=== PATIENT | male | born 1945 | race Two or more races ===

== ENCOUNTER 2020-09-18 10:50 | Outpatient (REF) | payer MEDICARE, SELFPAY ==
--- NOTE | 2020-09-18 10:58 | XR_ITS ---
EXAMINATION: XR SHOULDER, RIGHT CLINICAL INFORMATION: Shoulder pain COMPARISON: None TECHNIQUE: AP external rotation, Grashey, scapular Y, and axillary views of the right shoulder. FINDINGS: No fracture. Glenohumeral alignment is anatomic with normal joint space. Mild AC joint arthritis. No abnormal soft tissue calcifications. Visualized right lung is clear. XR/XR shoulder RT min 2V IMPRESSION: Mild AC joint arthritis.
== END 2020-09-18 10:51 | disposition home or self-care (01) ==
LOC: HO.XRAY 10:50
PROVIDERS: PCP Internal Medicine; Visit Provider Nurse Practitioner Family
DX: M25.511 Pain in right shoulder (principal)
CPT/HCPCS: 73030

== ENCOUNTER → 2020-10-14 13:28 | Outpatient (BNVA) | payer MEDICARE, SELFPAY | PROVIDERS: PCP Internal Medicine; Referring Provider Internal Medicine; Visit Provider Orthopaedic Surgery | DX: M75.41 Impingement syndrome of right shoulder (principal) | CPT/HCPCS: 20610; 99202; J1040 ==

== ENCOUNTER 2021-04-07 07:18 | Outpatient (REF) | payer MEDICARE, SELFPAY ==
[2021-04-07 08:43] LABS: MANUAL DIFF FLAG NO
[2021-04-07 08:49] LABS: Basophils Absolute Auto 0.1 X10*3/uL (0.0-0.2); Eosinophils Absolute Auto 0.4 X10*3/uL (0.0-0.4); Hematocrit 41.5 % (42-52); Hemoglobin 13.5 g/dl (14.0-18.0); Lymphocytes Percent Auto 39.1 % (20-40); Mean Corpuscular HGB Conc 32.5 g/dl (31.0-36.0); Mean Corpuscular Hemoglobin 29.5 pg (27.0-33.0); Mean Corpuscular Volume 90.6 fL (80-98); Mean Platelet Volume 10.7 fL (9.4-12.4); Monocytes Absolute Auto 0.5 X10*3/uL (0.1-1.2); Monocytes Percent Auto 9.8 % (2-11); Neutrophils Absolute Auto 2.1 X10*3/uL (2.0-8.3); Neutrophils Percent Auto 41.1 % (45-73); Platelet Count 211 X10*3/uL (160-400); Red Blood Count 4.58 X10*6/uL (4.60-5.80); Red Cell Distribution Width 13.1 % (11.0-16.0)
[2021-04-07 09:06] LABS: Alanine Aminotransferase 30 U/L (0-40); Albumin Level 4.1 g/dL (3.5-5.0); Alkaline Phosphatase 88 U/L (39-117); Anion Gap 11 (12-20); Aspartate Amino Transferase 26 U/L (5-37); Bilirubin Total 0.6 mg/dL (0.0-1.0); Blood Urea Nitrogen 22 mg/dL (9-16); Calcium 8.8 mg/dL (8.4-10.2); Carbon Dioxide 29 mmol/L (22-29); Chloride 106 mmol/L (96-108); Cholesterol 142 mg/dL; Estimated Glomerular Filt Rate > 60; Glucose Random 99 mg/dL (60-115); HDL Cholesterol 44 mg/dL; LDL Cholesterol Calculated 83 mg/dl; Potassium 3.8 mmol/L (3.3-5.1); Sodium 142 mmol/L (135-145); Total Protein 6.4 g/dL (6.5-8.0); Triglycerides 75 mg/dL
[2021-04-07 09:31] LABS: Thyroid Stimulating Hormone 1.75 uIU/mL (0.32-4.0)
[2021-04-07 09:35] LABS: Folate 14.9 ng/mL (> or = 4.0); Vitamin B12 655 pg/mL (200-900)
== END 2021-04-07 07:19 | disposition home or self-care (01) ==
LOC: HO.LAB 07:18
PROVIDERS: PCP Internal Medicine; Visit Provider Internal Medicine
DX: I10 Essential (primary) hypertension (principal); I25.10 Atherosclerotic heart disease of native coronary artery without angina pectoris; E78.00 Pure hypercholesterolemia, unspecified
CPT/HCPCS: 36415; 80053; 80061; 82607; 82746; 84439; 84443; 85025

== ENCOUNTER 2021-04-17 17:31 | Emergency (ER) | payer MEDICARE, SELFPAY ==
[2021-04-17 17:55] VITALS: BP 213/93; PULSE 62; RESP 18; TEMP 36.8; O2SAT 98; BMI 24.5
--- NOTE | 2021-04-17 18:38 | ED.GENADULT ---
HPI - General Adult General Chief complaint: General Medical Stated complaint: high bp Time Seen by Provider: 04/17/21 18:38 Source: patient Mode of arrival: ambulatory Limitations: no limitations History of Present Illness HPI narrative: Patient history of hypertension on metoprolol and hydrochlorothiazide checked his blood pressure was elevated in 200 range on arrival it was 213/93 patient denied any headache no nausea no vomiting no shortness of breath no chest pain seen here on 04/07 with normal kidney functions Related Data Home Medications Medication Instructions Recorded Confirmed aspirin 81 mg tablet,delayed 81 mg PO DAILY 09/18/20 04/08/21 release Previous Rx's Medication Instructions Recorded atorvastatin 40 mg tablet 40 mg PO DAILY #90 tab 04/08/21 clotrimazole 1 % topical cream 1 appl TOPICAL BID 28 Days #45 g 04/08/21 ezetimibe 10 mg tablet 10 mg PO DAILY #90 tab 04/08/21 hydrochlorothiazide 25 mg tablet 25 mg PO QAM #90 tab 04/08/21 metoprolol succinate 50 mg 50 mg PO DAILY 90 Days #90 tab 04/08/21 tablet,extended release 24 hr tadalafil 20 mg tablet 20 mg PO DIRECTED #15 cap 04/08/21 losartan [Cozaar] 50 mg PO DAILY #30 tab 04/17/21 Allergies Allergy/AdvReac Type Severity Reaction Status Date / Time No Known Allergies Allergy Unverified 08/06/20 16:54 Review of Systems Review of Systems: Constitutional : No Weight loss, No Fever, No Chills ENT/Mouth : No sore throat, No Rhinorrhea Eyes: No Eye Pain, No Swelling Cardiovascular : No Chest Pain, no palpitations Respiratory : No Cough, No Sputum, no shortness of breath Gastrointestinal : no Nausea, No Vomiting, No Diarrhea, No abdominal Pain, no black stools Genitourinary : No Dysuria, No Urinary Frequency Musculoskeletal : No joint pain, No Myalgias, No Joint Swelling Skin : No Skin Lesions, No rash Neuro : No Weakness, No Numbness, No Dizziness, No Headache Psych : No Anxiety/Panic, No Depression Heme/Lymph: No Bruising, No Lymphadenopathy Endocrine : No Polyuria, No Polydipsia All other systems reviewed and are negative [facility] Past Medical History Medical History Coronary artery disease Erectile dysfunction Fall High prostate specific antigen (PSA) Hypercholesterolemia Hypertension Hypogonadism Peripheral vascular disease Shoulder pain, right Family History Family History Father Hypertension Mother Hypertension Social History Social History Alcohol intake: current Alcohol intake frequency: holidays/special occasions only Advance Directives: No Advance Directives Information Provided: Yes Current occupational status: employed 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 Oriented X3. No acute distress. Eyes: PERRLA, No Nystagmus ENT: Pharynx normal. Oral Mucosa moist Neck: Normal inspection. Neck supple. CVS: Normal heart rate and rhythm. Pulses normal. Respiratory: No respiratory distress. Equal air entry bilateral, no wheezing/rales/rhonchi Abdomen: Soft and nontender. Bowel sounds are present, no mass palpable, no CVA tenderness Skin: Skin warm and dry. Normal skin color. Normal skin turgor. Extremities: No lower extremity edema. No calf tenderness Neuro: Oriented X 3. No motor deficit. No sensory deficit.No cerebellar signs , cranial nerves II-XII intact Medical Decision Making MDM Narrative Medical decision making narrative: Patient with history of essential hypertension came with increased blood pressure patient on metoprolol and hydrochlorothiazide for long time will add losartan at this time. Patient does not have any end-organ damage symptoms or signs Discharge Plan Discharge Clinical Impression: Hypertension Qualifiers: Hypertension type: essential hypertension Qualified Code(s): I10 - Essential (primary) hypertension Patient Disposition: Home, Self-Care Instructions: Hypertension (ED) Additional Instructions: Decrease salt intake start taking new medication for blood pressure for better blood pressure control Check blood pressure daily should be less than 140/90 Prescriptions: New losartan [Cozaar] 50 mg tablet 50 mg PO DAILY Qty: 30 RF: 0 No Action aspirin [Adult Low Dose Aspirin] 81 mg tablet,delayed release (DR/EC) 81 mg PO DAILY RF: 0 atorvastatin 40 mg tablet 40 mg PO DAILY Qty: 90 RF: 1 ezetimibe 10 mg tablet 10 mg PO DAILY Qty: 90 RF: 1 metoprolol succinate 50 mg tablet extended release 24 hr 50 mg PO DAILY 90 Days Qty: 90 RF: 1 hydrochlorothiazide 25 mg tablet 25 mg PO QAM Qty: 90 RF: 2 tadalafil 20 mg tablet 20 mg PO DIRECTED Qty: 15 RF: 4 clotrimazole 1 % cream 1 appl topical BID 28 Days Qty: 45 RF: 0 Interventions: ED Discharge Assessment Last Done: 04/17/21 19:31 Discharge Date/Time: 04/17/21 19:32
[2021-04-17 19:20] VITALS: BP 191/98; PULSE 52; RESP 16; TEMP 37; O2SAT 98
[2021-04-17 19:21] VITALS: BP 191/98; PULSE 52
[2021-04-17] MEDS: Losartan Potassium 50 MG TABLET PO (19:21)
== END 2021-04-17 19:32 | disposition home or self-care (01) ==
PROVIDERS: Emergency Provider Internal Medicine; PCP Internal Medicine
DX: I10 Essential (primary) hypertension (principal); Z79.899 Other long term (current) drug therapy
CPT/HCPCS: 99284

== ENCOUNTER → 2021-05-18 12:44 | Outpatient (BNVA) | payer MEDICARE, SELFPAY | PROVIDERS: PCP Internal Medicine; Visit Provider Internal Medicine Cardiovascular Disease | DX: I25.10 Atherosclerotic heart disease of native coronary artery without angina pectoris (principal); I10 Essential (primary) hypertension | CPT/HCPCS: 93005; 99212 ==

== ENCOUNTER 2021-07-19 09:11 | Outpatient (REF) | payer MEDICARE, SELFPAY ==
[2021-07-19 10:21] LABS: MANUAL DIFF FLAG NO
[2021-07-19 10:28] LABS: Basophils Absolute Auto 0.1 X10*3/uL (0.0-0.2); Basophils Percent Auto 1.6 % (0-2); Eosinophils Absolute Auto 0.3 X10*3/uL (0.0-0.4); Eosinophils Percent Auto 7.3 % (0-4); Hematocrit 40.7 % (42-52); Hemoglobin 13.5 g/dl (14.0-18.0); Imm Gran Abs Auto 0.01 X10*3/uL (0.00-0.03); Imm Gran Pct Auto 0.2 % (0.0-0.4); Immature Retic Fraction 9.1 % (2.3-13.4); Lymphocytes Absolute Auto 1.8 X10*3/uL (1.2-4.9); Lymphocytes Percent Auto 42.3 % (20-40); Mean Corpuscular HGB Conc 33.2 g/dl (31.0-36.0); Mean Corpuscular Volume 90.4 fL (80-98); Mean Platelet Volume 10.9 fL (9.4-12.4); Monocytes Absolute Auto 0.4 X10*3/uL (0.1-1.2); Monocytes Percent Auto 8.9 % (2-11); Neutrophils Absolute Auto 1.7 X10*3/uL (2.0-8.3); Neutrophils Percent Auto 39.7 % (45-73); Platelet Count 221 X10*3/uL (160-400); Red Cell Distribution Width 13.6 % (11.0-16.0); Reticulocyte Percent 1.5 % (0.5-1.8); Reticulocytes Absolute 0.067 X10*6/uL (0.026-0.095); White Blood Count 4.3 X10*3/uL (4.8-10.8)
[2021-07-19 11:16] LABS: Ferritin 48 ng/mL (20-250)
[2021-07-19 11:19] LABS: Alanine Aminotransferase 21 U/L (0-40); Albumin Level 4.1 g/dL (3.5-5.0); Alkaline Phosphatase 82 U/L (39-117); Anion Gap 11 (12-20); Aspartate Amino Transferase 22 U/L (5-37); Bilirubin Total 0.7 mg/dL (0.0-1.0); Blood Urea Nitrogen 20 mg/dL (9-16); Calcium 8.8 mg/dL (8.4-10.2); Carbon Dioxide 25 mmol/L (22-29); Chloride 111 mmol/L (96-108); Cholesterol 132 mg/dL; Estimated Glomerular Filt Rate > 60; Glucose Random 88 mg/dL (60-115); HDL Cholesterol 45 mg/dL; Iron 76 mcg/dL (45-160); LDL Cholesterol Calculated 74 mg/dl; Percent Iron Saturation 25 % (15-50); Potassium 4.2 mmol/L (3.3-5.1); Sodium 143 mmol/L (135-145); Total Iron Binding Capacity 308 mcg/dL (228-428); Total Protein 6.6 g/dL (6.5-8.0); Triglycerides 69 mg/dL; Unsaturated Iron Binding 232 ug/dL
[2021-07-19 11:32] LABS: Folate 15.8 ng/mL (> or = 4.0); Vitamin B12 578 pg/mL (200-900)
== END 2021-07-19 09:12 | disposition home or self-care (01) ==
LOC: HO.LAB 09:11
PROVIDERS: PCP Internal Medicine; Visit Provider Internal Medicine
DX: D64.9 Anemia, unspecified (principal); E78.00 Pure hypercholesterolemia, unspecified
CPT/HCPCS: 36415; 80053; 80061; 82607; 82728; 82746; 83540; 85025; 85045

== ENCOUNTER 2021-12-13 09:05 | Outpatient (REF) | payer MEDICARE, SELFPAY ==
[2021-12-13 10:50] LABS: PSA,Total (Free>4and<10) 9.91 ng/mL (0.00-4.00)
[2021-12-14 14:20] LABS: Free Prostate Spec Ag 1.7 ng/mL; Percent Free Prostate Spec Ag 22 % (calc) (>25); Prostate Specific Ag Total 7.6 ng/mL (< OR = 4.0)
== END 2021-12-13 09:06 | disposition home or self-care (01) ==
LOC: HO.LAB 09:05
PROVIDERS: Urology; PCP Internal Medicine; Visit Provider Urology
DX: Z12.5 Encounter for screening for malignant neoplasm of prostate (principal); R97.20 Elevated prostate specific antigen [PSA]
CPT/HCPCS: 36415; 84153; 84154

== ENCOUNTER → 2021-12-15 08:30 | Outpatient (BNVA) | payer MEDICARE, SELFPAY | PROVIDERS: PCP Internal Medicine; Visit Provider Urology | DX: R97.20 Elevated prostate specific antigen [PSA] (principal); N40.1 Benign prostatic hyperplasia with lower urinary tract symptoms; N13.8 Other obstructive and reflux uropathy | CPT/HCPCS: 51798; 99212 ==

== ENCOUNTER 2022-01-12 09:15 | Outpatient (REF) | payer MEDICARE, SELFPAY ==
[2022-01-12 09:34] LABS: MANUAL DIFF FLAG NO
[2022-01-12 09:57] LABS: Basophils Absolute Auto 0.1 X10*3/uL (0.0-0.2); Basophils Percent Auto 1.6 % (0-2); Eosinophils Absolute Auto 0.4 X10*3/uL (0.0-0.4); Hematocrit 43.1 % (42.0-52.0); Hemoglobin 14.3 g/dl (14.0-18.0); Imm Gran Abs Auto 0.02 X10*3/uL (0.00-0.03); Imm Gran Pct Auto 0.3 % (0.0-0.4); Immature Retic Fraction 14.9 % (2.3-13.4); Lymphocytes Absolute Auto 2.5 X10*3/uL (1.2-4.9); Lymphocytes Percent Auto 40.3 % (20-40); Mean Corpuscular HGB Conc 33.2 g/dl (31.0-36.0); Mean Corpuscular Hemoglobin 29.9 pg (27.0-33.0); Mean Platelet Volume 10.5 fL (9.4-12.4); Monocytes Absolute Auto 0.5 X10*3/uL (0.1-1.2); Monocytes Percent Auto 8.1 % (2-11); Neutrophils Absolute Auto 2.6 x10*3/uL (2.0-8.3); Neutrophils Percent Auto 42.7 % (45-73); Platelet Count 227 X10*3/uL (160-400); Red Blood Count 4.79 X10*6/uL (4.60-5.80); Red Cell Distribution Width 13.3 % (11.0-16.0); Retic HGB Equivalent 35.1 pg (30.0-35.0); Reticulocyte Percent 1.5 % (0.5-1.8); Reticulocytes Absolute 0.074 X10*6/uL (0.026-0.095); White Blood Count 6.2 X10*3/uL (4.8-10.8)
[2022-01-12 10:39] LABS: Iron 80 mcg/dL (45-160)
[2022-01-12 10:48] LABS: Ferritin 34 ng/mL (20-250)
[2022-01-12 11:15] LABS: Percent Iron Saturation 23 % (15-50); Total Iron Binding Capacity 352 mcg/dL (228-428); Unsaturated Iron Binding 272 ug/dL
[2022-01-12 11:17] LABS: Folate 15.4 ng/mL (> or = 4.0); Vitamin B12 575 pg/mL (200-900)
== END 2022-01-12 09:16 | disposition home or self-care (01) ==
LOC: HO.LAB 09:15
PROVIDERS: PCP Internal Medicine; Visit Provider Internal Medicine
DX: D64.9 Anemia, unspecified (principal)
CPT/HCPCS: 36415; 82607; 82728; 82746; 83540; 85025; 85045

== ENCOUNTER 2022-04-15 06:47 | Outpatient (REF) | payer MEDICARE, SELFPAY ==
[2022-04-15 07:01] LABS: MANUAL DIFF FLAG NO
[2022-04-15 07:36] LABS: Basophils Absolute Auto 0.1 X10*3/uL (0.0-0.2); Basophils Percent Auto 1.6 % (0-2); Eosinophils Absolute Auto 0.3 X10*3/uL (0.0-0.4); Eosinophils Percent Auto 5.5 % (0-4); Hematocrit 38.8 % (42.0-52.0); Hemoglobin 13.4 g/dl (14.0-18.0); Imm Gran Abs Auto 0.01 X10*3/uL (0.00-0.03); Imm Gran Pct Auto 0.2 % (0.0-0.4); Lymphocytes Absolute Auto 1.9 X10*3/uL (1.2-4.9); Lymphocytes Percent Auto 34.2 % (20-40); Mean Corpuscular HGB Conc 34.5 g/dl (31.0-36.0); Mean Corpuscular Hemoglobin 30.7 pg (27.0-33.0); Mean Corpuscular Volume 88.8 fL (80.0-98.0); Mean Platelet Volume 10.6 fL (9.4-12.4); Monocytes Absolute Auto 0.5 X10*3/uL (0.1-1.2); Monocytes Percent Auto 9.5 % (2-11); Neutrophils Absolute Auto 2.7 x10*3/uL (2.0-8.3); Platelet Count 228 X10*3/uL (160-400); Red Blood Count 4.37 X10*6/uL (4.60-5.80); Red Cell Distribution Width 13.6 % (11.0-16.0); White Blood Count 5.5 X10*3/uL (4.8-10.8)
[2022-04-15 07:59] LABS: Alanine Aminotransferase 22 U/L (0-40); Albumin Level 3.8 g/dL (3.5-5.0); Alkaline Phosphatase 87 U/L (39-117); Anion Gap 9 (12-20); Aspartate Amino Transferase 20 U/L (5-37); Bilirubin Total 0.6 mg/dL (0.0-1.0); Blood Urea Nitrogen 23 mg/dL (9-16); Calcium 9.4 mg/dL (8.4-10.2); Carbon Dioxide 29 mmol/L (22-29); Chloride 105 mmol/L (96-108); Cholesterol 133 mg/dL; Estimated Glomerular Filt Rate > 60; Glucose Random 91 mg/dL (60-115); HDL Cholesterol 46 mg/dL; LDL Cholesterol Calculated 76 mg/dl; Potassium 3.8 mmol/L (3.3-5.1); Sodium 139 mmol/L (135-145); Total Protein 6.2 g/dL (6.5-8.0); Triglycerides 59 mg/dL
[2022-04-15 08:18] LABS: PSA,Total (Free>4and<10) 12.03 ng/mL (0.00-4.00)
[2022-04-15 08:23] LABS: Free T4 (Free Thyroxine) 1.08 ng/dL (0.71-1.85); Prostate Specific Antigen Scr 11.97 ng/mL (<0.05-4.0); Thyroid Stimulating Hormone 2.03 uIU/mL (0.32-4.0)
[2022-04-15 08:36] LABS: Folate 12.3 ng/mL (> or = 4.0); Vitamin B12 380 pg/mL (200-900)
== END 2022-04-15 06:48 | disposition home or self-care (01) ==
LOC: HO.LAB 06:47
PROVIDERS: Urology; Absent Provider Internal Medicine; PCP Internal Medicine; Visit Provider Internal Medicine Cardiovascular Disease
DX: Z12.5 Encounter for screening for malignant neoplasm of prostate (principal); N13.8 Other obstructive and reflux uropathy; N40.1 Benign prostatic hyperplasia with lower urinary tract symptoms; E78.00 Pure hypercholesterolemia, unspecified
CPT/HCPCS: 36415; 80053; 80061; 82607; 82746; 84153; 84439; 84443; 85025

== ENCOUNTER 2022-06-07 06:46 | Outpatient (REF) | payer MEDICARE, SELFPAY ==
[2022-06-07 08:04] LABS: Cholesterol 210 mg/dL; HDL Cholesterol 43 mg/dL; LDL Cholesterol Calculated 153 mg/dl; Triglycerides 74 mg/dL
[2022-06-07 08:13] LABS: Prostate Specific Antigen 7.64 ng/mL (<0.05-4.0)
== END 2022-06-07 06:47 | disposition home or self-care (01) ==
LOC: HO.LAB 06:46
PROVIDERS: Absent Provider Urology; PCP Internal Medicine; Visit Provider Nurse Practitioner Family
DX: I25.10 Atherosclerotic heart disease of native coronary artery without angina pectoris (principal); R97.20 Elevated prostate specific antigen [PSA]; Z12.5 Encounter for screening for malignant neoplasm of prostate
CPT/HCPCS: 36415; 80061; 84153

== ENCOUNTER → 2022-06-20 12:29 | Outpatient (BNVA) | payer MEDICARE, SELFPAY | PROVIDERS: PCP Internal Medicine; Referring Provider Internal Medicine; Visit Provider Internal Medicine Cardiovascular Disease | DX: I25.10 Atherosclerotic heart disease of native coronary artery without angina pectoris (principal); I10 Essential (primary) hypertension | CPT/HCPCS: 93005; 99212 ==

== ENCOUNTER 2022-08-18 07:57 | Outpatient (REF) | payer MEDICARE, SELFPAY ==
[2022-08-18 08:13] LABS: MANUAL DIFF FLAG NO
[2022-08-18 08:26] LABS: Basophils Absolute Auto 0.1 X10*3/uL (0.0-0.2); Eosinophils Absolute Auto 0.4 X10*3/uL (0.0-0.4); Eosinophils Percent Auto 7.3 % (0-4); Hematocrit 41.8 % (42.0-52.0); Hemoglobin 14.3 g/dl (14.0-18.0); Imm Gran Abs Auto 0.01 X10*3/uL (0.00-0.03); Imm Gran Pct Auto 0.2 % (0.0-0.4); Lymphocytes Absolute Auto 2.7 X10*3/uL (1.2-4.9); Lymphocytes Percent Auto 44.6 % (20-40); Mean Corpuscular HGB Conc 34.2 g/dl (31.0-36.0); Mean Corpuscular Hemoglobin 30.6 pg (27.0-33.0); Mean Corpuscular Volume 89.3 fL (80.0-98.0); Mean Platelet Volume 10.5 fL (9.4-12.4); Monocytes Absolute Auto 0.5 X10*3/uL (0.1-1.2); Monocytes Percent Auto 8.3 % (2-11); Neutrophils Absolute Auto 2.3 x10*3/uL (2.0-8.3); Neutrophils Percent Auto 37.6 % (45-73); Platelet Count 213 X10*3/uL (160-400); Red Blood Count 4.68 X10*6/uL (4.60-5.80); Red Cell Distribution Width 13.1 % (11.0-16.0)
[2022-08-18 09:37] LABS: Alanine Aminotransferase 48 U/L (0-40); Albumin Level 4.2 g/dL (3.5-5.0); Alkaline Phosphatase 87 U/L (39-117); Anion Gap 17 (12-20); Aspartate Amino Transferase 36 U/L (5-37); Bilirubin Total 0.7 mg/dL (0.0-1.0); Blood Urea Nitrogen 19 mg/dL (9-16); Carbon Dioxide 22 mmol/L (22-29); Chloride 106 mmol/L (96-108); Cholesterol 114 mg/dL; Estimated Glomerular Filt Rate > 60; Glucose Random 80 mg/dL (60-115); HDL Cholesterol 42 mg/dL; LDL Cholesterol Calculated 59 mg/dl; Potassium 4.1 mmol/L (3.3-5.1); Sodium 141 mmol/L (135-145); Total Protein 6.7 g/dL (6.5-8.0); Triglycerides 65 mg/dL
[2022-08-18 09:47] LABS: Appearance Urine Clear; Color Urine Yellow; Glucose Urine UA Negative (Negative); Leukocyte Esterase Urine Negative (Negative); Nitrite Urine Negative (Negative); PH 6.5 (5.0-9.0); Urine Blood Negative (Negative); Urine Ketones Negative (Negative); Urine Protein Negative (Neg-Trace)
[2022-08-18 10:00] LABS: Free T4 (Free Thyroxine) 0.97 ng/dL (0.71-1.85); Thyroid Stimulating Hormone 3.48 uIU/mL (0.32-4.0)
[2022-08-22 21:26] LABS: PSA, Ultra Sensitive 9.45 ng/mL
== END 2022-08-18 07:58 | disposition home or self-care (01) ==
LOC: HO.LAB 07:57
PROVIDERS: PCP Internal Medicine; Visit Provider Internal Medicine Cardiovascular Disease
DX: Z12.5 Encounter for screening for malignant neoplasm of prostate (principal); R97.20 Elevated prostate specific antigen [PSA]; E78.00 Pure hypercholesterolemia, unspecified; I25.10 Atherosclerotic heart disease of native coronary artery without angina pectoris
CPT/HCPCS: 36415; 80053; 80061; 81003; 84153; 84439; 84443; 85025

== ENCOUNTER 2022-08-26 07:50 | Outpatient (REF) | payer MEDICARE, SELFPAY ==
--- NOTE | ~2022-08-26 | US_ITS ---
EXAMINATION: US ABDOMEN COMPLETE CLINICAL INFORMATION: Other specified abnormal findings of blood chemistry. COMPARISON: None TECHNIQUE: Real-time imaging of the abdominal viscera. FINDINGS: PANCREAS: Normal. ABDOMINAL AORTA: The proximal, mid, and distal segments are normal in caliber. INFERIOR VENA CAVA: Visualized portions are normal. LIVER: The liver is normal in size. The liver contour is normal. Parenchymal echogenicity is normal. No focal hepatic lesion. There is no intrahepatic biliary duct dilatation seen. GALLBLADDER: Gallbladder wall thickness is 0.25 cm. The gallbladder is physiologically distended without evidence of stones, polyps, wall thickening or pericholecystic fluid. There is echogenic bile visualized. COMMON BILE DUCT: Normal in caliber measuring 0.45 cm in diameter. RIGHT KIDNEY: There is an echogenic stone in midpole measuring 0.31 x 0.28 x 0.41 cm. No hydronephrosis or focal parenchymal lesions. The kidney measures 9.9 cm in maximum dimension. LEFT KIDNEY: Normal. No hydronephrosis. No renal calculi or focal parenchymal lesions. The kidney measures 11.4 cm in maximum dimension. SPLEEN: Normal. The spleen measures 8.1 cm in maximum dimension. FREE FLUID: None. US/US abdomen complete IMPRESSION: Nonobstructive echogenic renal calculi mid pole right kidney. No caliectasis or hydronephrosis. Echogenic bile in the gallbladder with borderline gallbladder wall thickening.
== END 2022-08-26 07:51 | disposition home or self-care (01) ==
LOC: HO.US 07:50
PROVIDERS: Visit Provider Internal Medicine
DX: R79.89 Other specified abnormal findings of blood chemistry (principal)
CPT/HCPCS: 76700

== ENCOUNTER 2022-09-28 08:51 | Outpatient (REF) | payer MEDICARE, SELFPAY ==
[2022-09-28 10:32] LABS: Alanine Aminotransferase 27 U/L (0-40); Albumin Level 4.1 g/dL (3.5-5.0); Alkaline Phosphatase 85 U/L (39-117); Aspartate Amino Transferase 23 U/L (5-37); Bilirubin Direct 0.4 mg/dL (0.0-0.5); Cholesterol 122 mg/dL; HDL Cholesterol 43 mg/dL; LDL Cholesterol Calculated 60 mg/dl; Total Protein 6.5 g/dL (6.5-8.0); Triglycerides 98 mg/dL
[2022-09-28 10:54] LABS: HBS Num1 1.86 mIU/mL (0-7.99); HBc Num1 0.06 S/CO (0.00-0.79); HBsAGNum1 0.22 S/CO (0.00-0.99); Hepatitis B Core Antibody Nonreactive (Nonreactive); Hepatitis B Surface Antigen Negative (Negative); ~HepC Num1 0.07 S/CO (0.00-0.79); ~Hepatitis B Surface Antibody NONREACTIVE (Nonreactive); ~Hepatitis C Antibody Nonreactive (Nonreactive)
== END 2022-09-28 08:52 | disposition home or self-care (01) ==
LOC: HO.LAB 08:51
PROVIDERS: PCP Internal Medicine; Visit Provider Internal Medicine
DX: I25.10 Atherosclerotic heart disease of native coronary artery without angina pectoris (principal); R79.89 Other specified abnormal findings of blood chemistry
CPT/HCPCS: 36415; 80061; 80076; 86704; 86706; 86803; 87340

== ENCOUNTER 2023-09-02 08:28 | Outpatient (REF) | payer MEDICARE, SELFPAY ==
[2023-09-02 08:50] LABS: MANUAL DIFF FLAG NO
[2023-09-02 09:03] LABS: Basophils Absolute Auto 0.1 X10*3/uL (0.0-0.2); Basophils Percent Auto 1.9 % (0-2); Eosinophils Absolute Auto 0.4 X10*3/uL (0.0-0.4); Eosinophils Percent Auto 7.5 % (0-4); Hematocrit 42.1 % (42.0-52.0); Hemoglobin 14.4 g/dl (14.0-18.0); Imm Gran Abs Auto 0.01 X10*3/uL (0.00-0.03); Imm Gran Pct Auto 0.2 % (0.0-0.4); Immature Retic Fraction 9.8 % (2.3-13.4); Mean Corpuscular HGB Conc 34.2 g/dl (31.0-36.0); Mean Corpuscular Hemoglobin 29.8 pg (27.0-33.0); Mean Corpuscular Volume 87.2 fL (80.0-98.0); Mean Platelet Volume 10.3 fL (9.4-12.4); Monocytes Absolute Auto 0.5 X10*3/uL (0.1-1.2); Monocytes Percent Auto 9.2 % (2-11); Neutrophils Absolute Auto 2.2 x10*3/uL (2.0-8.3); Neutrophils Percent Auto 42.2 % (45-73); Platelet Count 197 X10*3/uL (160-400); Red Blood Count 4.83 X10*6/uL (4.60-5.80); Red Cell Distribution Width 12.9 % (11.0-16.0); Retic HGB Equivalent 36.4 pg (30.0-35.0); Reticulocyte Percent 1.5 % (0.5-1.8); Reticulocytes Absolute 0.071 X10*6/uL (0.026-0.095); White Blood Count 5.2 X10*3/uL (4.8-10.8)
[2023-09-02 09:45] LABS: Alanine Aminotransferase 19 U/L (0-40); Albumin Level 4.2 g/dL (3.5-5.0); Alkaline Phosphatase 84 U/L (39-117); Anion Gap 13 (12-20); Aspartate Amino Transferase 20 U/L (5-37); Bilirubin Total 0.8 mg/dL (0.0-1.0); Blood Urea Nitrogen 18 mg/dL (9-16); Carbon Dioxide 23 mmol/L (22-29); Chloride 110 mmol/L (96-108); Cholesterol 128 mg/dL (<200); Estimated Glomerular Filt Rate > 60; Glucose Random 94 mg/dL (60-115); HDL Cholesterol 48 mg/dL (>40); Iron 102 mcg/dL (45-160); LDL Cholesterol Calculated 66 mg/dL (<100); Percent Iron Saturation 35 % (15-50); Potassium 3.8 mmol/L (3.3-5.1); Sodium 142 mmol/L (135-145); Total Iron Binding Capacity 295 mcg/dL (228-428); Total Protein 6.9 g/dL (6.5-8.0); Triglycerides 72 mg/dL (<150); Unsaturated Iron Binding 193 ug/dL
[2023-09-02 09:52] LABS: Ferritin 57 ng/mL (20-250); Free T4 (Free Thyroxine) 1.09 ng/dL (0.71-1.85); Thyroid Stimulating Hormone 3.57 uIU/mL (0.32-4.0)
[2023-09-02 10:09] LABS: Folate 14.4 ng/mL (> or = 4.0); Vitamin B12 1232 pg/mL (200-900)
== END 2023-09-02 08:29 | disposition home or self-care (01) ==
LOC: HO.LAB 08:28
PROVIDERS: PCP Internal Medicine; Referring Provider Internal Medicine Cardiovascular Disease; Visit Provider Internal Medicine
DX: E78.00 Pure hypercholesterolemia, unspecified (principal); D64.9 Anemia, unspecified
CPT/HCPCS: 36415; 80053; 80061; 82607; 82728; 82746; 83540; 84439; 84443; 85025; 85045

== ENCOUNTER 2023-09-11 08:28 | Outpatient (AMB) | payer MEDICARE, SELFPAY ==
[2023-09-11 08:36] VITALS: BP 140/84; PULSE 58; O2SAT 95; BMI 23.7
--- NOTE | 2023-09-11 08:36 | A.OFFPC_ITS ---
Vital Signs 09/11/23 08:36 Height 5 ft 8 in Weight 156 lb 0.8 oz BMI 23.7 BP 140/84 H Blood Pressure Location Lt brachial Position Sitting Pulse 58 Pulse Source Pulse Oximeter Temp Source Skin Pulse Oximetry (%) 95 Oxygen Delivery Method Room Air Intake Visit Reasons: Annual Physical Intake Note: Patient is here today for a physical. Allergies No Known Allergies Allergy (Verified 09/11/23 08:37) Medication List - Last Reconciled 09/11/23 by Addie Bhatia MD aspirin (Adult Low Dose Aspirin) 81 mg PO DAILY atorvastatin 80 mg PO DAILY blood pressure monitor (Blood Pressure Kit) As directed clotrimazole 1% 1 appl topical BID 4 weeks ezetimibe 10 mg PO DAILY finasteride 5 mg PO DAILY 90 days hydrochlorothiazide 25 mg PO QAM hydrocortisone acetate (Anucort-HC) 25 mg [place] BEDTIME metoprolol succinate ER 50 mg PO DAILY 90 days tadalafil 20 mg PO Q 2 days PRN; Tobacco use date assessed: 09/11/23 Fall risk assessment: No Falls in past year Last assessed Fall Risk: 09/11/23 Dental Screening Dental Screen Date: 09/11/23 Did you have a dental visit in the last 12 months?: No Did you have a dental problem in the last 6 months where you did not have access to dental care?: No HPI Annual Physical HPI Details 78-year-old male with coronary artery di sease hypertension hypercholesterolemia BPH coming in for physical exam last seen in May 2023. [facility] Medical History (Updated 09/11/23 @ 08:45 by Addie Bhatia MD) Physical exam LFT elevation Constipation Hemorrhoid Elevated prostate specific antigen [PSA] High prostate specific antigen (PSA) Peripheral vascular disease Hypogonadism Coronary artery disease Hypercholesterolemia Erectile dysfunction Hypertension Fall Shoulder pain, right Surgical History Stented coronary artery Family History Father Hypertension Mother Hypertension Social History (Updated 09/11/23 @ 09:03 by Addie Bhatia MD) Housing: House Alcohol intake: current Alcohol intake frequency: holidays/special occasions only Patient Tobacco Use Status: Never used Tobacco e-Cigarette/Vaping Use: Never Used Second Hand Smoke Exposure: No service: No Current occupational status: employed 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 1. Little interest or pleasure in doing things: not at all 2. Feeling down, depressed, or hopeless: not at all 3. Trouble falling or staying asleep, or sleeping too much: not at all 4. Feeling tired or having little energy: not at all 5. Poor appetite or overeating: not at all 6. Feeling bad about yourself - or that you are a failure or have let yourself or your family down: not at all 7. Trouble concentrating on things, such as reading the newspaper or watching television: not at all 8. Moving or speaking so slowly that other people could have noticed. Or the opposite - being so fidgety or restless that you have been moving around a lot more than usual: not at all 9. Thoughts that you would be better off or of hurting yourself in some way: not at all Total score: 0 Depression Screening Interpretation: Negative Depression Screening Done: Yes Source: Developed by Drs. Bret Arzola, Paris Monet, Jon García and colleagues, with an educational neo from [employer]. Thrive Questionnaire Date Thrive assessed: 05/26/23 AUDIT C Alcohol Use Questionnaire (AUDIT-C) 1. How often do you have a drink containing alcohol?: Never 3. How often do you have six or more drinks on one occasion?: Never Total Score: 0 FLACO-7 AMB Questionnaire FLACO-7 Date FLACO - 7 assessed: 09/11/23 Feeling nervous, anxious, or on edge: 0 = Not at all Not being able to stop or control worryin = Not at all Worrying too much about different things: 0 = Not at all Trouble relaxin = Not at all Being so restless that it is hard to sit still: 0 = Not at all Becoming easily annoyed or irritable: 0 = Not at all Feeling afraid as if something awful might happen: 0 = Not at all Total FLACO-7 score (0-4 normal; 5-9 mild; 10-14 moderate; 15-21 severe): 0 Source: Developed by Drs. Bret Arzola, Paris Monet, Jon García and colleagues, with an educational neo from [employer]. Review of Systems Const Denies poor appetite and Denies weakness Eyes Denies no additional complaints ENT Reports Normal hearing present, Denies dizziness, Denies nasal congestion, Denies tinnitus and Denies sore throat Card Denies chest pain, Denies syncope, Denies rapid heart rate and Denies dyspnea Resp Denies cough and Denies dyspnea GI Denies change in stool character, Reports constipation, Denies diarrhea, Denies nausea and Denies vomiting Denies dysuria and Denies urinary frequency Neuro Reports Normal hearing present, Denies confusion, Denies dizziness, Denies syncope and Denies weakness Psych Denies confusion Physical exam (Primary Care) Vital Signs: Last Vital Signs Pulse 58 09/11/23 08:36 BP 140/84 H 09/11/23 08:36 Pulse Ox 95 09/11/23 08:36 Oxygen Delivery Method Room Air 09/11/23 08:36 Next steps: decline rectal exam and hernia exam BMI result Body Mass Index 23.7 Tobacco/Smoking Status: Tobacco use Status Tobacco use date assessed 09/11/23 09/11/23 08:38 Patient Tobacco Use Status Never used Tobacco 09/11/23 09:03 Tobacco use type 07/20/21 12:33 e-Cigarette/Vaping Use Never Used 09/11/23 09:03 PHQ-9: PHQ-9 Score PHQ-9: Total score 0 09/11/23 08:51 Depression Screening Interpretation: Negative Thrive Assessment: Date of Thrive Assessment Date Thrive assessed 05/26/23 09/11/23 08:38 Const General: No confusion Orientation/consciousness: No confusion HENMT Head: Yes normocephalic Ears: external ears normal and TM's normal bilaterally Face and sinus: Yes normal facial exam Mouth: moist mucous membranes Throat: Yes tonsils normal Eyes Conjunctivae: conjunctivae normal Pupils: Equal, round and reactive pupils present and Pupil accommodation reflex normal Direct Ophthalmoscopy: normal light reflex Neck Neck: No lymphadenopathy Thyroid: Thyroid normal Chest Chest palpation & inspection: normal inspection of the chest Resp Effort & Inspection: normal respiratory effort and no audible wheezes Auscultation: clear to auscultation bilaterally, no crackles, no wheezes and lung sounds not diminished Cardio Rate: regular rate Rhythm: regular rhythm Peripheral pulses: radial pulses present and dorsalis pedis present GI Palpation (GI): no masses Auscultation: normal bowel sounds and normoactive bowel sounds Rectal Exam - Male: Yes deferred Skin General skin exam: no rashes or lesions noted Rashes: no rashes Neuro General: No confusion Cranial nerves: Yes Equal, round and reactive pupils present and Yes Normal hearing present Cognition (Neuro): normal cognition Gait exam (Neuro): Normal gait present Motor exam (neuro): 5/5 motor strength present throughout Deep tendon reflexes (DTR's): Right brachioradialis reflex intensity grade: 2+, Left brachioradialis reflex intensity grade: 2+, Right patellar reflex intensity grade: 2+ and Left patellar reflex intensity grade: 2+ Extrem General: No edema Office Procedures Flu Questionnaire Does the patient have a severe egg allergy?: No Does the patient have severe life threatening allergies?: No Does the patient have a fever or illness today?: No Has the patient ever had Guillain-Monument Syndrome?: No Has the patient ever had any past reaction to a flu shot?: No Immunizations flu vacc [id number] 6mos up(PF) 60 mcg(15 mcgx4)/0.5 mL IM syringe Performing Provider: Addie Bhatia MD [facility] Administered by: JEF Hess on 09/11/23 09:24 Dose Route Admin Location Dispensed Lot Number Expiration Date NDC Steel Cutter 0.5 mL IM Left Deltoid 0.5 mL [id number] 05/19/24 [id number] [employer] VIS Given Date VIS Provided VIS Publication Date 09/11/23 Single Vaccine 21 Eligibility Eligibility Date Funding Source Not [facility] Eligible 09/11/23 Private Assessment and Plan Assessment & Plan (1) Annual physical exam: Code(s): Z00.00 - Encounter for general adult medical examination without abnormal findings (2) Hypertension: Code(s): I10 - Essential (primary) hypertension Qualifiers: Hypertension type: essential hypertension Qualified Code(s): I10 - Essential (primary) hypertension Plan: Continue with blood pressure medication. Decrease salt intake and exercise patient takes hydrochlorothiazide 25 mg once a day and metoprolol 50 mg once a day. Patient decline BP ff up 2 months (3) Coronary artery disease: Comment: MARSHALL CAD LAD 02/14/2018 Dr. Love [facility] Medical Code(s): I25.10 - Atherosclerotic heart disease of [place] coronary artery without angina pectoris Qualifiers: Associated angina: without angina Coronary Disease-Associated Artery/Lesion type: [place] artery [place] vs. transplanted heart: [place] heart Qualified Code(s): I25.10 - Atherosclerotic heart disease of [place] coronary artery without angina pectoris Plan: Control the cholesterol, weight, blood pressure (4) Hypercholesterolemia: Code(s): E78.00 - Pure hypercholesterolemia, unspecified Plan: Avoid fried foods, chicken skin, eggs, butter margarine, pastries and meat. Be it pork or beef they have a lot of cholesterol LDL goal of less than 70 and triglyceride of less than 150. Patient on Zetia 10 mg once a day and atorvastatin 80 mg once a day Orders: Orders Influenza [id number] Immunization Today Z23 - Encounter for immunization Medications: New blood pressure monitor (Blood Pressure Kit) As directed 1 ea 0RF I10 - Essential (primary) hypertension Coding Level of Care Code Est Pt Prev Care >65y(10024) Diagnoses Annual physical exam Z00.00 Essential hypertension I10 Hypertension type: essential hypertension Coronary artery disease involving [place] coronary artery of [place] heart without angina pectoris I25.10 Associated angina: without angina Coronary Disease-Associated Artery/Lesion type: [place] artery [place] vs. transplanted heart: [place] heart Hypercholesterolemia E78.00
== END 2023-09-11 09:28 | disposition home or self-care (01) ==
PROVIDERS: PCP Internal Medicine; Visit Provider Internal Medicine
DX: Z00.00 Encounter for general adult medical examination without abnormal findings (principal); I10 Essential (primary) hypertension; I25.10 Atherosclerotic heart disease of native coronary artery without angina pectoris; E78.00 Pure hypercholesterolemia, unspecified; Z23 Encounter for immunization
CPT/HCPCS: 90471; 90686; 99397

== ENCOUNTER 2023-09-18 10:32 | Outpatient (AMB) | payer MEDICARE, SELFPAY ==
[2023-09-18 10:47] VITALS: BP 120/78; PULSE 59; BMI 23.5
--- NOTE | 2023-09-18 10:47 | A.OFFVIS_ITS ---
Intake Vital Signs 09/18/23 10:47 Height 5 ft 8 in Weight 154 lb 5.177 oz BMI 23.5 BP 120/78 Blood Pressure Location Lt brachial Position Sitting Pulse 59 Intake Visit Reasons: fu Intake Note: 1 year follow-up with ekg feeling good Party Director Required: No Allergies No Known Allergies Allergy (Verified 09/11/23 08:37) Medication List - Last Reconciled 09/18/23 by Varinder Jones MD aspirin (Adult Low Dose Aspirin) 81 mg PO DAILY atorvastatin 80 mg PO DAILY blood pressure monitor (Blood Pressure Kit) As directed clotrimazole 1% 1 appl topical BID 4 weeks ezetimibe 10 mg PO DAILY finasteride 5 mg PO DAILY 90 days hydrochlorothiazide 25 mg PO QAM hydrocortisone acetate (Anucort-HC) 25 mg [place] BEDTIME metoprolol succinate ER 50 mg PO DAILY 90 days tadalafil 20 mg PO Q 2 days PRN; HPI HPI Comments History of Present Illness Details Josesito comes for follow-up. Denies any cardiac symptoms at current time. Remains very active. Takes all his medications. Denies any exertional chest pain. No shortness of breath, orthopnea, PND. No prolonged palpitations, irregular heartbeat, lightheadedness, syncope. [facility] Medical History Physical exam LFT elevation Constipation Hemorrhoid Elevated prostate specific antigen [PSA] High prostate specific antigen (PSA) Peripheral vascular disease Hypogonadism Coronary artery disease Hypercholesterolemia Erectile dysfunction Hypertension Fall Shoulder pain, right Surgical History Stented coronary artery Family History Father Hypertension Mother Hypertension Social History Housing: House Alcohol intake: current Alcohol intake frequency: holidays/special occasions only Patient Tobacco Use Status: Never used Tobacco e-Cigarette/Vaping Use: Never Used Second Hand Smoke Exposure: No service: No Current occupational status: employed 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 Current occupational exposures/hazards: No Cognitive needs: No Hearing needs: No Vision needs: Yes Review of Systems Const Denies chills, Denies fatigue, Denies fever(s), Denies frequent falls, Denies weakness, Denies weight gain and Denies weight loss ENT Denies dizziness Card Denies chest pain, Denies leg edema, Denies lightheadedness, Denies palpitations, Denies dyspnea, Denies dyspnea on exertion, Denies orthopnea and Denies other (loss of consciousness) Resp Denies cough, Denies dyspnea and Denies dyspnea on exertion GI Denies hematochezia and Denies change in stool character Musc Denies abnormal gait, Denies muscle weakness, Denies numbness, Denies radiating pain into limb and Denies tingling Neuro Denies abnormal gait, Denies dizziness, Denies frequent falls, Denies numbness, Denies tingling and Denies weakness Endo Denies fatigue and Denies palpitations Physical Exam Vital Signs: Last Vital Signs Pulse 59 09/18/23 10:47 BP 120/78 09/18/23 10:47 BMI result Body Mass Index 23.5 Const General: cooperative, comfortable, no acute distress, alert and awake Nutritional Appearance: thin Orientation/consciousness: patient oriented x3 Limitations: no limitations Neck Neck: Yes trachea midline, Yes supple and Yes no JVD Carotids: no bruits Resp Effort & Inspection: normal respiratory effort Auscultation: clear to auscultation bilaterally Cardio Jugular venous distension: no JVD Palpation: normal PMI Rate: regular rate Rhythm: regular rhythm Heart sounds: S1 normal heart sound present and S2 normal heart sound present GI Auscultation: normal bowel sounds Skin General skin exam: no rashes or lesions noted Neuro General: patient oriented x3 and no focal motor deficits Extrem General: Yes no clubbing, cyanosis or edema Psych Appearance: grossly normal Office Procedures EKG Details: EKG shows normal sinus rhythm with voltage criteria for LVH otherwise normal EKG [id number], Complete Assessment & Plan Assessment & Plan (1) Coronary artery disease: Comment: MARSHALL CAD LAD 02/14/2018 Dr. Love [facility] Medical Code(s): I25.10 - Atherosclerotic heart disease of [place] coronary artery without angina pectoris Qualifiers: Coronary Disease-Associated Artery/Lesion type: [place] artery [place] vs. transplanted heart: [place] heart Associated angina: without angina Qualified Code(s): I25.10 - Atherosclerotic heart disease of [place] coronary artery without angina pectoris Plan: CAD with prior stenting of the LAD with no recurrent symptoms angina. Doing very well from that perspective. Continue aggressive medical therapy. Continue low-dose aspirin therapy for life. Continue high-intensity statin therapy with ezetimibe. LDL is well optimized blood pressure is optimized, see below for management. Advised to call me with any worsening symptoms that may require further workup. (2) Hypertension: Code(s): I10 - Essential (primary) hypertension Qualifiers: Hypertension type: essential hypertension Qualified Code(s): I10 - Essential (primary) hypertension Plan: Hypertension which is currently well optimized advised to monitor blood pressure at home maintain a log. Goal blood pressure less than 130/84. Advised low- salt diet advised to maintain heart healthy lifestyle. Will follow up in the clinic in 1 year's time, sooner p.r.n.. Thank you for allowing me to partake in his care Coding Level of Care Code Est Pt Level 4 (05016) Diagnoses Coronary artery disease involving [place] coronary artery of [place] heart without angina pectoris I25.10 Coronary Disease-Associated Artery/Lesion type: [place] artery [place] vs. transplanted heart: [place] heart Associated angina: without angina Essential hypertension I10 Hypertension type: essential hypertension CPT Codes EKG - CPT: 70372-[id number], Complete ([id number])
== END 2023-09-18 11:34 | disposition home or self-care (01) ==
PROVIDERS: PCP Internal Medicine; Visit Provider Internal Medicine Cardiovascular Disease
DX: I25.10 Atherosclerotic heart disease of native coronary artery without angina pectoris (principal); I10 Essential (primary) hypertension
CPT/HCPCS: 93010; 99214

== ENCOUNTER → 2023-09-18 10:32 | Outpatient (BNVA) | payer MEDICARE, SELFPAY | PROVIDERS: PCP Internal Medicine; Visit Provider Internal Medicine Cardiovascular Disease | DX: I25.10 Atherosclerotic heart disease of native coronary artery without angina pectoris (principal); I10 Essential (primary) hypertension | CPT/HCPCS: 93005; 99212 ==

== ENCOUNTER 2024-02-12 13:24 | Outpatient (AMB) | payer MEDICARE, SELFPAY ==
[2024-02-12 13:30] VITALS: BP 170/98; PULSE 60; O2SAT 98; BMI 23.7
--- NOTE | 2024-02-12 13:30 | A.OFFPC_ITS ---
Vital Signs 02/12/24 13:30 02/12/24 13:55 Height 5 ft 8 in Weight 156 lb BMI 23.7 BP 170/98 H 152/98 H Blood Pressure Location Lt brachial Lt brachial Position Sitting Sitting Pulse 60 Pulse Source Pulse Oximeter Pulse Oximetry (%) 98 Oxygen Delivery Method Room Air Intake Visit Reasons: Hypertension Allergies No Known Allergies Allergy (Verified 02/12/24 13:30) Medication List - Last Reconciled 02/12/24 by Addie Bhatia MD aspirin (Adult Low Dose Aspirin) 81 mg PO DAILY atorvastatin 80 mg PO DAILY blood pressure monitor (Blood Pressure Kit) As directed clotrimazole 1% 1 appl topical BID 4 weeks ezetimibe 10 mg PO DAILY finasteride 5 mg PO DAILY 90 days hydrochlorothiazide 25 mg PO QAM hydrocortisone acetate (Anucort-HC) 25 mg CO BEDTIME metoprolol succinate ER 50 mg PO DAILY tadalafil 20 mg PO Q 2 days PRN; Tobacco use date assessed: 02/12/24 Fall risk assessment: No Falls in past year Last assessed Fall Risk: 02/12/24 HPI Hypertension HPI Details 78-year-old male with hypertension coron abdiel artery disease January 2018 hypercholesterolemia coming in for follow-up. Last seen in August 2023 for physical exam. Review of the notes has followed up with cardiology August 2023 stable continuing with aspirin, high-intensity statin with Zetia blood pressure control less than 130/84. Patient blames serving high salt diet. advised the need to change [facility] Medical History Physical exam LFT elevation Constipation Hemorrhoid Elevated prostate specific antigen [PSA] High prostate specific antigen (PSA) Peripheral vascular disease Hypogonadism Coronary artery disease Hypercholesterolemia Erectile dysfunction Hypertension Fall Shoulder pain, right Surgical History Stented coronary artery Family History Father Hypertension Mother Hypertension Social History Housing: House Alcohol intake: current Alcohol intake frequency: holidays/special occasions only Patient Tobacco Use Status: Never used Tobacco e-Cigarette/Vaping Use: Never Used Second Hand Smoke Exposure: No service: No Current occupational status: employed 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 How often do you have a drink containing alcohol?: Never 3. How often do you have six or more drinks on one occasion?: Never Total Score: 0 FLACO-7 AMB Questionnaire FLACO-7 Date FLACO - 7 assessed: 02/12/24 Source: Developed by Drs. Bret Arzola, Paris Monet, Jon García and colleagues, with an educational neo from [employer]. Physical exam (Primary Care) Vital Signs: Last Vital Signs Pulse 60 02/12/24 13:30 BP 170/98 H 02/12/24 13:30 Pulse Ox 98 02/12/24 13:30 Oxygen Delivery Method Room Air 02/12/24 13:30 BMI result Body Mass Index 23.7 Tobacco/Smoking Status: Tobacco use Status Tobacco use date assessed 02/12/24 02/12/24 13:35 Patient Tobacco Use Status Never used Tobacco 02/12/24 13:35 Tobacco use type 07/20/21 12:33 e-Cigarette/Vaping Use Never Used 02/12/24 13:35 Thrive Assessment: Date of Thrive Assessment Date Thrive assessed 05/26/23 02/12/24 13:35 Const General: alert; No acute distress Eyes Conjunctivae: conjunctivae normal Resp Auscultation: clear to auscultation bilaterally Cardio Rate: regular rate Rhythm: regular rhythm GI Inspection: Yes normal to inspection Extrem General: Yes normal to inspection and No edema Assessment and Plan Assessment & Plan (1) Coronary artery disease: Comment: MARSHALL CAD LAD 02/14/2018 Dr. Love [facility] Medical Code(s): I25.10 - Atherosclerotic heart disease of [place] coronary artery without angina pectoris Qualifiers: Coronary Disease-Associated Artery/Lesion type: [place] artery [place] vs. transplanted heart: [place] heart Associated angina: without angina Qualified Code(s): I25.10 - Atherosclerotic heart disease of [place] coronary artery without angina pectoris Plan: Control the cholesterol, weight, blood pressure, diabetes continue with aspirin and follows up with Cardiology (2) Hypertension: Code(s): I10 - Essential (primary) hypertension Qualifiers: Hypertension type: essential hypertension Qualified Code(s): I10 - Essential (primary) hypertension Plan: Continue with blood pressure medication. Decrease salt intake and exercise patient on hydrochlorothiazide 25 mg once a day metoprolol 50 mg once a day (3) BPH w urinary obs/LUTS: Code(s): N40.1 - Benign prostatic hyperplasia with lower urinary tract symptoms; N13.8 - Other obstructive and reflux uropathy Plan: Continue with finasteride 5 mg once a day (4) Hypercholesterolemia: Code(s): E78.00 - Pure hypercholesterolemia, unspecified Plan: Avoid fried foods, chicken skin, eggs, butter margarine, pastries and meat. Be it pork or beef they have a lot of cholesterol LDL goal of less than 70 and triglyceride of less than 150. On Zetia 10 mg once a day and atorvastatin 80 mg once a day Medications: Refilled blood pressure monitor (Blood Pressure Kit) As directed 1 ea 0RF I10 - Essential (primary) hypertension Coding Level of Care Code Est Pt Level 4 (11957) Diagnoses Coronary artery disease involving [place] coronary artery of [place] heart without angina pectoris I25.10 Coronary Disease-Associated Artery/Lesion type: [place] artery [place] vs. transplanted heart: [place] heart Associated angina: without angina Essential hypertension I10 Hypertension type: essential hypertension BPH w urinary obs/LUTS N40.1; N13.8 Hypercholesterolemia E78.00
[2024-02-12 13:55] VITALS: BP 152/98
== END 2024-02-12 14:04 | disposition home or self-care (01) ==
PROVIDERS: PCP Internal Medicine; Visit Provider Internal Medicine
DX: I25.10 Atherosclerotic heart disease of native coronary artery without angina pectoris (principal); I10 Essential (primary) hypertension; N40.1 Benign prostatic hyperplasia with lower urinary tract symptoms; N13.8 Other obstructive and reflux uropathy; E78.00 Pure hypercholesterolemia, unspecified
CPT/HCPCS: 99214

== ENCOUNTER 2024-08-13 06:42 | Outpatient (REF) | payer MEDICARE, SELFPAY ==
[2024-08-13 06:54] LABS: MANUAL DIFF FLAG NO
[2024-08-13 07:23] LABS: Basophils Absolute Auto 0.1 X10*3/uL (0.0-0.2); Basophils Percent Auto 1.8 % (0-2); Eosinophils Absolute Auto 0.4 X10*3/uL (0.0-0.4); Eosinophils Percent Auto 6.4 % (0-4); Hematocrit 42.7 % (42.0-52.0); Hemoglobin 14.6 g/dl (14.0-18.0); Imm Gran Abs Auto 0.01 X10*3/uL (0.00-0.03); Imm Gran Pct Auto 0.2 % (0.0-0.4); Immature Retic Fraction 9.3 % (2.3-13.4); Lymphocytes Absolute Auto 2.2 X10*3/uL (1.2-4.9); Lymphocytes Percent Auto 38.9 % (20-40); Mean Corpuscular HGB Conc 34.2 g/dl (31.0-36.0); Mean Corpuscular Hemoglobin 30.5 pg (27.0-33.0); Mean Corpuscular Volume 89.3 fL (80.0-98.0); Mean Platelet Volume 10.8 fL (9.4-12.4); Monocytes Absolute Auto 0.5 X10*3/uL (0.1-1.2); Monocytes Percent Auto 8.7 % (2-11); Neutrophils Absolute Auto 2.5 x10*3/uL (2.0-8.3); Platelet Count 235 X10*3/uL (160-400); Red Blood Count 4.78 X10*6/uL (4.60-5.80); Retic HGB Equivalent 35.1 pg (30.0-35.0); Reticulocyte Percent 1.3 % (0.5-1.8); Reticulocytes Absolute 0.064 X10*6/uL (0.026-0.095); White Blood Count 5.7 X10*3/uL (4.8-10.8)
[2024-08-13 08:01] LABS: Alanine Aminotransferase 17 U/L (0-40); Alkaline Phosphatase 92 U/L (39-117); Anion Gap 13 (12-20); Aspartate Amino Transferase 20 U/L (5-37); Bilirubin Total 0.8 mg/dL (0.0-1.0); Blood Urea Nitrogen 21 mg/dL (9-16); Calcium 9.3 mg/dL (8.4-10.2); Carbon Dioxide 24 mmol/L (22-29); Chloride 109 mmol/L (96-108); Cholesterol 128 mg/dL (<200); Estimated Glomerular Filt Rate > 60; Glucose Random 95 mg/dL (60-115); HDL Cholesterol 45 mg/dL (>40); Iron 87 mcg/dL (45-160); LDL Cholesterol Calculated 71 mg/dL (<100); Percent Iron Saturation 33 % (15-50); Potassium 3.8 mmol/L (3.3-5.1); Sodium 142 mmol/L (135-145); Total Iron Binding Capacity 265 mcg/dL (228-428); Total Protein 6.9 g/dL (6.5-8.0); Triglycerides 61 mg/dL (<150); Unsaturated Iron Binding 178 ug/dL; Uric Acid 4.9 mg/dL (3.4-7.0)
[2024-08-13 08:09] LABS: Ferritin 86 ng/mL (20-250); Free T4 (Free Thyroxine) 0.99 ng/dL (0.71-1.85); Thyroid Stimulating Hormone 2.54 uIU/mL (0.32-4.0)
[2024-08-13 08:18] LABS: Folate 14.1 ng/mL (> or = 4.0); Prostate Specific Antigen Scr 14.28 ng/mL (<0.05-4.0); Vitamin B12 > 2000 pg/mL (200-900)
== END 2024-08-13 06:43 | disposition home or self-care (01) ==
LOC: HO.LAB 06:42
PROVIDERS: PCP Internal Medicine; Visit Provider Internal Medicine
DX: E78.00 Pure hypercholesterolemia, unspecified (principal); R97.20 Elevated prostate specific antigen [PSA]
CPT/HCPCS: 36415; 80053; 80061; 82607; 82728; 82746; 83540; 84153; 84439; 84443; 84550; 85025; 85045

== ENCOUNTER 2024-08-15 13:59 | Outpatient (AMB) | payer MEDICARE, SELFPAY ==
--- NOTE | 2024-08-15 14:07 | A.OFFPC_ITS ---
Vital Signs 08/15/24 14:10 08/15/24 14:41 Height 5 ft 8 in Weight 150 lb 6 oz BMI 22.9 BP 162/110 H 170/80 H Blood Pressure Location Lt brachial Lt brachial Position Sitting Sitting Pulse 83 Pulse Source Pulse Oximeter Pulse Oximetry (%) 98 Oxygen Delivery Method Room Air Intake Visit Reasons: 6 Month Follow Up Intake Note: Patient here for a 6 month follow up Wind Technician Required: No Accompanied by: Self / Same As Patient Allergies hydrochlorothiazide Allergy (Intermediate, Unverified 08/15/24 14:38) frequency Medication List - Last Reconciled 08/15/24 by Addie Bhatia MD aspirin (Adult Low Dose Aspirin) 81 mg PO DAILY atorvastatin 80 mg PO DAILY blood pressure monitor (Blood Pressure Kit) As directed clotrimazole 1% 1 appl topical BID 4 weeks ezetimibe 10 mg PO DAILY finasteride 5 mg PO DAILY 90 days hydrocortisone acetate (Anucort-HC) 25 mg MS BEDTIME lisinopril 5 mg PO DAILY metoprolol succinate ER 50 mg PO DAILY Tobacco use date assessed: 02/12/24 Dental Screening Dental Screen Date: 09/11/23 HPI 6 Month Follow Up HPI Details 79-year-old male with hypertension, ana [place]ary artery disease hypercholesterolemia and BPH last seen in 01/2024.. Patient was noted to have an elevated PSA and was advised to get Urology involved. Patient was seen by Dr. Monge and has not followed up. [facility] Medical History Physical exam LFT elevation Constipation Hemorrhoid Elevated prostate specific antigen [PSA] High prostate specific antigen (PSA) Peripheral vascular disease Hypogonadism Coronary artery disease Hypercholesterolemia Erectile dysfunction Hypertension Fall Shoulder pain, right Surgical History Stented coronary artery Family History Father Hypertension Mother Hypertension Social History Housing: House Alcohol intake: current Alcohol intake frequency: holidays/special occasions only Patient Tobacco Use Status: Never used Tobacco e-Cigarette/Vaping Use: Never Used Second Hand Smoke Exposure: No service: No Current occupational status: employed 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 1. Little interest or pleasure in doing things: not at all 2. Feeling down, depressed, or hopeless: not at all 3. Trouble falling or staying asleep, or sleeping too much: not at all 4. Feeling tired or having little energy: not at all 5. Poor appetite or overeating: not at all 6. Feeling bad about yourself - or that you are a failure or have let yourself or your family down: not at all 7. Trouble concentrating on things, such as reading the newspaper or watching television: not at all 8. Moving or speaking so slowly that other people could have noticed. Or the opposite - being so fidgety or restless that you have been moving around a lot more than usual: not at all 9. Thoughts that you would be better off or of hurting yourself in some way: not at all Total score: 0 Source: Developed by Drs. Bret Arzola, Paris Monet, Jon García and colleagues, with an educational neo from [employer]. Thrive Questionnaire Date Thrive assessed: 08/15/24 I am a: Patient What is your living situation today?: I have a steady place to live Within the past 12 months, did the food you bought not last and you didn't have the money to get more?: Never true Within the past 12 months, did you worry whether your food would run out before you got money to buy more?: Never true Do you have trouble paying for medicines?: No Do you have trouble getting transportation to medical appointments?: No Do you have trouble paying your heating and electricity bill?: No Do you have trouble taking care of your child, family member or friend?: No Do you have trouble with day-to-day activities such as bathing, preparing meals, shopping, managing finances, etc.?: No Are you currently unemployed and looking for a job?: No Are you interested in more education?: No Please select the resources that you would like help with: None Currently or been in a relationship where the following occur: No concerns reported THRIVE Score: 0 AUDIT C Alcohol Use Questionnaire (AUDIT-C) 1. How often do you have a drink containing alcohol?: Never Total Score: 0 FLACO-7 AMB Questionnaire FLACO-7 Date FLACO - 7 assessed: 08/15/24 Feeling nervous, anxious, or on edge: 0 = Not at all Not being able to stop or control worryin = Not at all Worrying too much about different things: 0 = Not at all Trouble relaxin = Not at all Being so restless that it is hard to sit still: 0 = Not at all Becoming easily annoyed or irritable: 0 = Not at all Feeling afraid as if something awful might happen: 0 = Not at all Total FLACO-7 score (0-4 normal; 5-9 mild; 10-14 moderate; 15-21 severe): 0 Source: Developed by Drs. Bret Arzloa, Paris Monet, Jon García and colleagues, with an educational neo from [employer]. Physical exam (Primary Care) Vital Signs: Last Vital Signs Pulse 83 08/15/24 14:10 BP 162/110 H 08/15/24 14:10 Pulse Ox 98 08/15/24 14:10 Oxygen Delivery Method Room Air 08/15/24 14:10 BMI result Body Mass Index 22.9 Tobacco/Smoking Status: Tobacco use Status Tobacco use date assessed 02/12/24 08/15/24 14:08 Patient Tobacco Use Status Never used Tobacco 08/15/24 14:08 Tobacco use type 07/26/24 10:48 e-Cigarette/Vaping Use Never Used 08/15/24 14:08 PHQ-9: PHQ-9 Score PHQ-9: Total score 0 08/15/24 14:08 Thrive Assessment: Date of Thrive Assessment Date Thrive assessed 08/15/24 08/15/24 14:08 Currently or been in a relationship where the following occur: No concerns reported Const General: alert; No acute distress Eyes Conjunctivae: conjunctivae normal Resp Auscultation: clear to auscultation bilaterally Cardio Rate: regular rate Rhythm: regular rhythm GI Inspection: Yes normal to inspection Extrem General: Yes normal to inspection and No edema Assessment and Plan Assessment & Plan (1) Hypercholesterolemia: Code(s): E78.00 - Pure hypercholesterolemia, unspecified Plan: Avoid fried foods, chicken skin, eggs, butter margarine, pastries and meat. Be it pork or beef they have a lot of cholesterol presently on atorvastatin 80 mg once a day (2) Coronary artery disease: Comment: MARSHALL CAD LAD 02/14/2018 Dr. Love [facility] Medical Code(s): I25.10 - Atherosclerotic heart disease of [place] coronary artery without angina pectoris Qualifiers: Coronary Disease-Associated Artery/Lesion type: [place] artery [place] vs. transplanted heart: [place] heart Associated angina: without angina Qualified Code(s): I25.10 - Atherosclerotic heart disease of [place] coronary artery without angina pectoris Plan: Control the cholesterol, weight, blood pressure, on aspirin 81 mg once a day (3) Elevated prostate specific antigen [PSA]: Code(s): R97.20 - Elevated prostate specific antigen [PSA] Plan: Patient was referred to Urology (4) Hypertension: Code(s): I10 - Essential (primary) hypertension Qualifiers: Hypertension type: essential hypertension Qualified Code(s): I10 - Essential (primary) hypertension Plan: Continue with blood pressure medication. Decrease salt intake and exercise taking hydrochlorothiazide 25 mg once a day and metoprolol 50 mg once a day. Discussed concern about the blood pressure and patient admits did not take the hydrochlorothiazide due to frequency. So will discontinue this and patient did not want an increase in metoprolol also. So will add lisinopril 5 mg once a day with metoprolol and enrolled in the blood pressure monitoring program. Discussed with the patient regarding salt intake Medications: New lisinopril 5 mg PO DAILY 30 tabs 3RF I10 - Essential (primary) hypertension Refilled finasteride 5 mg PO DAILY 90 days 90 tabs 1RF N13.8 - Other obstructive and reflux uropathy, N40.1 - Benign prostatic hyperplasia with lower urinary tract symptoms, R33.9 - Retention of urine, unspecified hydrocortisone acetate (Anucort-HC) 25 mg MS BEDTIME 12 ea 0RF clotrimazole 1% 1 appl topical BID 4 weeks 45 grams 0RF B35.4 - Tinea corporis metoprolol succinate ER 50 mg PO DAILY 90 tabs 3RF I10 - Essential (primary) hypertension Coding Level of Care Code Est Pt Level 4 (18610) Diagnoses Hypercholesterolemia E78.00 Coronary artery disease involving [place] coronary artery of [place] heart without angina pectoris I25.10 Coronary Disease-Associated Artery/Lesion type: [place] artery [place] vs. transplanted heart: [place] heart Associated angina: without angina Elevated prostate specific antigen [PSA] R97.20 Essential hypertension I10 Hypertension type: essential hypertension
[2024-08-15 14:10] VITALS: BP 162/110; PULSE 83; O2SAT 98; BMI 22.9
[2024-08-15 14:41] VITALS: BP 170/80
== END 2024-08-15 14:54 | disposition home or self-care (01) ==
PROVIDERS: PCP Internal Medicine; Visit Provider Internal Medicine
DX: E78.00 Pure hypercholesterolemia, unspecified (principal); I25.10 Atherosclerotic heart disease of native coronary artery without angina pectoris; R97.20 Elevated prostate specific antigen [PSA]; I10 Essential (primary) hypertension

== ENCOUNTER → 2024-08-15 13:59 | Outpatient (BNVA) | payer MEDICARE, SELFPAY | PROVIDERS: PCP Internal Medicine; Visit Provider Internal Medicine | DX: E78.00 Pure hypercholesterolemia, unspecified (principal); I25.10 Atherosclerotic heart disease of native coronary artery without angina pectoris; R97.20 Elevated prostate specific antigen [PSA]; I10 Essential (primary) hypertension | CPT/HCPCS: 99212 ==

== ENCOUNTER 2024-09-12 09:18 | Outpatient (AMB) | payer MEDICARE, SELFPAY ==
[2024-09-12 09:31] VITALS: BP 172/88; PULSE 64; O2SAT 94; BMI 22.7
--- NOTE | 2024-09-12 09:31 | MHC.PC.OV ---
Vital Signs 09/12/24 09:31 Height 5 ft 8 in Weight 149 lb BMI 22.7 BP 172/88 H Blood Pressure Location Lt brachial Position Sitting Pulse 64 Pulse Source Pulse Oximeter Pulse Oximetry (%) 94 Oxygen Delivery Method Room Air Intake Visit Reasons: Annual Exam - see comments Sql Consultant Required: No Accompanied by: Self / Same As Patient Allergies hydrochlorothiazide Allergy (Intermediate, Unverified 09/12/24 09:31) frequency Medication List - Last Reconciled 09/12/24 by Addie Bhatia MD aspirin (Adult Low Dose Aspirin) 81 mg PO DAILY atorvastatin 80 mg PO DAILY blood pressure monitor (Blood Pressure Kit) As directed clotrimazole 1% 1 appl topical BID 4 weeks ezetimibe 10 mg PO DAILY hydrocortisone acetate (Anucort-HC) 25 mg [place] BEDTIME lisinopril 5 mg PO DAILY metoprolol succinate ER 50 mg PO DAILY Tobacco use date assessed: 02/12/24 Fall risk assessment: No Falls in past year Last assessed Fall Risk: 09/12/24 Dental Screening Dental Screen Date: 09/12/24 Did you have a dental visit in the last 12 months?: Yes Did you have a dental problem in the last 6 months where you did not have access to dental care?: No Was dental information given to patient?: Patient has dentist HPI Annual Exam - see comments HPI Details 79-year-old male with coronary artery disease elevated PSA hypercholesterolemia hypertension last seen in 08/09/2024. Patient is here for physical exam. Patient's last colonoscopy was done in 2009. states has hemorrhoid =but deny constipation PFSH Medical History Physical exam LFT elevation Constipation Hemorrhoid Elevated prostate specific antigen [PSA] High prostate specific antigen (PSA) Peripheral vascular disease Hypogonadism Coronary artery disease Hypercholesterolemia Erectile dysfunction Hypertension Fall Shoulder pain, right Surgical History Stented coronary artery Family History Father Hypertension Mother Hypertension Social History (Updated 09/12/24 @ 09:44 by Addie Bhatia MD) Housing: House Alcohol intake: current Alcohol intake frequency: holidays/special occasions only Comment: once glass once a month Patient Tobacco Use Status: Never used Tobacco Tobacco use type: Cigarette e-Cigarette/Vaping Use: Never Used Second Hand Smoke Exposure: No service: No Current occupational status: employed 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 1. Little interest or pleasure in doing things: not at all 2. Feeling down, depressed, or hopeless: not at all 3. Trouble falling or staying asleep, or sleeping too much: not at all 4. Feeling tired or having little energy: not at all 5. Poor appetite or overeating: not at all 6. Feeling bad about yourself - or that you are a failure or have let yourself or your family down: not at all 7. Trouble concentrating on things, such as reading the newspaper or watching television: not at all 8. Moving or speaking so slowly that other people could have noticed. Or the opposite - being so fidgety or restless that you have been moving around a lot more than usual: not at all 9. Thoughts that you would be better off or of hurting yourself in some way: not at all Total score: 0 Source: Developed by Drs. Bret Arzola, Paris Monet, Jon García and colleagues, with an educational neo from [employer]. Thrive Questionnaire Date Thrive assessed: 08/15/24 I am a: Patient What is your living situation today?: I have a steady place to live Within the past 12 months, did the food you bought not last and you didn't have the money to get more?: Never true Within the past 12 months, did you worry whether your food would run out before you got money to buy more?: Never true Do you have trouble paying for medicines?: No Do you have trouble getting transportation to medical appointments?: No Do you have trouble paying your heating and electricity bill?: No Do you have trouble taking care of your child, family member or friend?: No Do you have trouble with day-to-day activities such as bathing, preparing meals, shopping, managing finances, etc.?: No Are you interested in more education?: No Please select the resources that you would like help with: None Currently or been in a relationship where the following occur: I choose not to answer THRIVE Score: 0 AUDIT C Alcohol Use Questionnaire (AUDIT-C) 1. How often do you have a drink containing alcohol?: Never Total Score: 0 FLACO-7 AMB Questionnaire FLACO-7 Date FLACO - 7 assessed: 08/15/24 Feeling nervous, anxious, or on edge: 0 = Not at all Not being able to stop or control worryin = Not at all Worrying too much about different things: 0 = Not at all Trouble relaxin = Not at all Being so restless that it is hard to sit still: 0 = Not at all Becoming easily annoyed or irritable: 0 = Not at all Feeling afraid as if something awful might happen: 0 = Not at all Total FLAOC-7 score (0-4 normal; 5-9 mild; 10-14 moderate; 15-21 severe): 0 Source: Developed by Drs. Bret Arzola, Paris Monet, Jon García and colleagues, with an educational neo from [employer]. Review of Systems Const Denies poor appetite and Denies weakness Eyes Denies no additional complaints ENT Reports Normal hearing present, Denies dizziness, Denies nasal congestion, Denies tinnitus and Denies sore throat Card Denies chest pain, Denies syncope, Denies rapid heart rate and Denies dyspnea Resp Denies cough and Denies dyspnea GI Denies change in stool character, Reports constipation, Denies diarrhea, Denies nausea and Denies vomiting Denies dysuria and Denies urinary frequency Neuro Reports Normal hearing present, Denies confusion, Denies dizziness, Denies syncope and Denies weakness Psych Denies confusion Physical exam (Primary Care) Vital Signs: Last Vital Signs Pulse 64 09/12/24 09:31 BP 172/88 H 09/12/24 09:31 Pulse Ox 94 09/12/24 09:31 Oxygen Delivery Method Room Air 09/12/24 09:31 BMI result Body Mass Index 22.7 Tobacco/Smoking Status: Tobacco use Status Tobacco use date assessed 02/12/24 09/12/24 09:34 Patient Tobacco Use Status Never used Tobacco 09/12/24 09:44 Tobacco use type Cigarette 09/12/24 09:34 e-Cigarette/Vaping Use Never Used 09/12/24 09:44 PHQ-9: PHQ-9 Score PHQ-9: Total score 0 09/12/24 09:34 Thrive Assessment: Date of Thrive Assessment Date Thrive assessed 08/15/24 09/12/24 09:34 Currently or been in a relationship where the following occur: I choose not to answer Const General: No confusion Orientation/consciousness: No confusion HENMT Head: Yes normocephalic Ears: external ears normal and TM's normal bilaterally Face and sinus: Yes normal facial exam Mouth: moist mucous membranes Throat: Yes tonsils normal Eyes Conjunctivae: conjunctivae normal Pupils: Equal, round and reactive pupils present and Pupil accommodation reflex normal Direct Ophthalmoscopy: normal light reflex Neck Neck: No lymphadenopathy Thyroid: Thyroid normal Chest Chest palpation & inspection: normal inspection of the chest Resp Effort & Inspection: normal respiratory effort and no audible wheezes Auscultation: clear to auscultation bilaterally, no crackles, no wheezes and lung sounds not diminished Cardio Rate: regular rate Rhythm: regular rhythm Peripheral pulses: radial pulses present and dorsalis pedis present GI Other: decline Palpation (GI): no masses Auscultation: normal bowel sounds and normoactive bowel sounds Rectal Exam - Male: Yes deferred Other: decline Skin General skin exam: no rashes or lesions noted Rashes: no rashes Neuro General: No confusion Cranial nerves: Yes Equal, round and reactive pupils present and Yes Normal hearing present Cognition (Neuro): normal cognition Gait exam (Neuro): Normal gait present Motor exam (neuro): 5/5 motor strength present throughout Deep tendon reflexes (DTR's): Right brachioradialis reflex intensity grade: 2+, Left brachioradialis reflex intensity grade: 2+, Right patellar reflex intensity grade: 2+ and Left patellar reflex intensity grade: 2+ Extrem General: No edema Office Procedures Flu Questionnaire Does the patient have a severe egg allergy?: No Does the patient have severe life threatening allergies?: No Does the patient have a fever or illness today?: No Has the patient ever had Guillain-[place] Syndrome?: No Has the patient ever had any past reaction to a flu shot?: No Immunizations Fluarix Triv [id number] (PF) 45 mcg (15 mcg x 3)/0.5 mL IM syringe Performing Provider: Addie Bhatia MD Performing Location: [facility] Administered by: MIGUEL Mason on 09/12/24 10:03 Dose Route Admin Location Dispensed Lot Number Expiration Date ND Facilities Administrator 0.5 mL IM Left Deltoid 0.5 mL [id number] 05/19/25 [id number] [employer] VIS Given Date VIS Provided VIS Publication Date 09/12/24 Single Vaccine 21 Eligibility Eligibility Date Funding Source Not [facility] Eligible 09/12/24 Private Coding Level of Care Code Est Pt Prev Care >65y(89094) Diagnoses Annual physical exam Z00.00 Coronary artery disease involving [place] coronary artery of [place] heart without angina pectoris I25.10 Associated angina: without angina Coronary Disease-Associated Artery/Lesion type: [place] artery [place] vs. transplanted heart: [place] heart Hypercholesterolemia E78.00 Essential hypertension I10 Hypertension type: essential hypertension Elevated prostate specific antigen [PSA] R97.20 Frequency of micturition R35.0 Assessment & Plan Assessment & Plan (1) Annual physical exam: Code(s): Z00.00 - Encounter for general adult medical examination without abnormal findings Category: Medical Plan: Patient is advised to eat healthy, keep well hydrated, keep active and have adequate sleep. (2) Coronary artery disease: Comment: MARSHALL CAD LAD 02/14/2018 [facility] Medical Code(s): I25.10 - Atherosclerotic heart disease of [place] coronary artery without angina pectoris Category: Medical Qualifiers: Associated angina: without angina Coronary Disease-Associated Artery/Lesion type: [place] artery [place] vs. transplanted heart: [place] heart Qualified Code(s): I25.10 - Atherosclerotic heart disease of [place] coronary artery without angina pectoris Plan: Control the cholesterol, weight, blood pressure, continue with aspirin 81 mg once a day (3) Hypercholesterolemia: Code(s): E78.00 - Pure hypercholesterolemia, unspecified Category: Medical Plan: Avoid fried foods, chicken skin, eggs, butter margarine, pastries and meat. Be it pork or beef they have a lot of cholesterol presently on Zetia and atorvastatin LDL goal of less than 70 and triglyceride of less than 150 (4) Hypertension: Code(s): I10 - Essential (primary) hypertension Category: Medical Qualifiers: Hypertension type: essential hypertension Qualified Code(s): I10 - Essential (primary) hypertension Plan: Continue with blood pressure medication. Decrease salt intake and exercise on lisinopril 5 mg once a day metoprolol 50 mg once a day (5) Elevated prostate specific antigen [PSA]: Code(s): R97.20 - Elevated prostate specific antigen [PSA] Category: Medical Plan: Patient is being followed up by Urology due to the elevated PSA patient on finasteride 5 mg once a day (6) Frequency of micturition: Code(s): R35.0 - Frequency of micturition Category: Medical Plan: will be seeing Urology 09/20/2024 Orders: Orders Influenza [id number] Immunization Today Z23 - Encounter for immunization Medications: New Fluarix Triv [id number] (PF) (flu vacc [id number] 6mos up(PF)) 0.5 mL IM ONCE 0.5 mL 0RF NS Z23 - Encounter for immunization Changed From lisinopril 5 mg PO DAILY 30 tabs 3RF I10 - Essential (primary) hypertension To lisinopril 10 mg PO DAILY 30 tabs 3RF I10 - Essential (primary) hypertension Refilled hydrocortisone acetate (Anucort-HC) 25 mg [place] BEDTIME 12 ea 0RF
== END 2024-09-12 10:09 | disposition home or self-care (01) ==
PROVIDERS: PCP Internal Medicine; Visit Provider Internal Medicine
DX: Z00.00 Encounter for general adult medical examination without abnormal findings (principal); I25.10 Atherosclerotic heart disease of native coronary artery without angina pectoris; E78.00 Pure hypercholesterolemia, unspecified; I10 Essential (primary) hypertension; R97.20 Elevated prostate specific antigen [PSA]; R35.0 Frequency of micturition; Z23 Encounter for immunization

== ENCOUNTER → 2024-09-12 09:18 | Outpatient (BNVA) | payer MEDICARE, SELFPAY | PROVIDERS: PCP Internal Medicine; Visit Provider Internal Medicine | DX: Z00.01 Encounter for general adult medical examination with abnormal findings (principal); Z23 Encounter for immunization; I25.10 Atherosclerotic heart disease of native coronary artery without angina pectoris; E78.00 Pure hypercholesterolemia, unspecified; I10 Essential (primary) hypertension; R97.20 Elevated prostate specific antigen [PSA]; R35.0 Frequency of micturition | CPT/HCPCS: 90471; 90656; 96127; 99397 ==

== ENCOUNTER → 2024-09-20 13:25 | Outpatient (BNVA) | payer MEDICARE, SELFPAY | PROVIDERS: PCP Internal Medicine; Visit Provider Urology | DX: N40.1 Benign prostatic hyperplasia with lower urinary tract symptoms (principal); N13.8 Other obstructive and reflux uropathy; R97.20 Elevated prostate specific antigen [PSA]; N52.9 Male erectile dysfunction, unspecified | CPT/HCPCS: 51798; 99212 ==

== ENCOUNTER 2024-09-20 13:26 | Outpatient (AMB) | payer MEDICARE, SELFPAY ==
--- NOTE | 2024-09-20 13:25 | MHC.OFFVIS ---
Intake Visit Reasons: Elevated PSA/BPH(Set) Intake Note: Patient is present for Elevated PSA/PVR Urology Med: None Antibiotic Allergy: None Blood Thinner: Aspirin Last PVR:30ml Today PVR: 10ml PSA:08/13/24 14.28 Patient states that his PCP Dr. Bhatia is concerned on his current PSA level Patient reports that his Urinary Frequency has increased and he is not on any medications for his bladder Accompanied by: Self / Same As Patient Allergies hydrochlorothiazide Allergy (Intermediate, Verified 09/20/24 13:25) frequency HPI Comments Details: Josesito is a pleasant male. He is a patient of Dr. Bhatia. Seen for the following urologic conditions - erectile dysfunction - BPH - elevated PSA Has not been seen since 12/09/2021 At that point was recommended follow-up SUSANNA enlarged prostate remains somewhat firm at right base Start finasteride Six-month follow-up Elevated PSA with BPH Has some degree of urinary weakness of stream Takes pumpkin seeds and vinegar Previously been offered medications PSA - longstanding elevation, has been offered biopsy on multiple prior occasions 01/04 5.3, 05/08 7.7, 12/11 7.6 F 22%, 08/13 PSA 14 SUSANNA 2+ prostate question nodule left base Discussion today regarding use of finasteride to try and drink prostate and help with multiple symptoms Will try with repeat PSA in 4 months Understands possible delay in diagnosis and risk prostate cancer but does not wish for biopsy. Erectile dysfunction Good response to [facility] Medical History Physical exam LFT elevation Constipation Hemorrhoid Elevated prostate specific antigen [PSA] High prostate specific antigen (PSA) Peripheral vascular disease Hypogonadism Coronary artery disease Hypercholesterolemia Erectile dysfunction Hypertension Fall Shoulder pain, right Surgical History Stented coronary artery Family History Father Hypertension Mother Hypertension Social History Housing: House Alcohol intake: current Alcohol intake frequency: holidays/special occasions only Comment: once glass once a month Patient Tobacco Use Status: Never used Tobacco Tobacco use type: Cigarette e-Cigarette/Vaping Use: Never Used Second Hand Smoke Exposure: No service: No Current occupational status: employed 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 Current occupational exposures/hazards: No Cognitive needs: No Hearing needs: No Vision needs: Yes Office Procedures Post Void Residual Post Residual Void Post Void Residual (PVR): 10 [id number] Void Residual by ultrasound Assessment & Plan Assessment & Plan (1) Erectile dysfunction: Code(s): N52.9 - Male erectile dysfunction, unspecified Category: Medical (2) BPH w urinary obs/LUTS: Code(s): N40.1 - Benign prostatic hyperplasia with lower urinary tract symptoms; N13.8 - Other obstructive and reflux uropathy Category: Medical Plan Start finasteride Six-month follow-up PSA Orders: Orders PSA,Total (Free>4and<10) 6 Months N13.8 - Other obstructive and reflux uropathy, N40.1 - Benign prostatic hyperplasia with lower urinary tract symptoms AMB Post Void Residual by ultrasound Today N13.8 - Other obstructive and reflux uropathy, N40.1 - Benign prostatic hyperplasia with lower urinary tract symptoms Medications: New finasteride 5 mg PO DAILY 90 days 90 tabs 1RF N13.8 - Other obstructive and reflux uropathy, N40.1 - Benign prostatic hyperplasia with lower urinary tract symptoms, R33.9 - Retention of urine, unspecified Patient Instructions: Imaging studies, laboratory and physical exam results were discussed and reviewed in detail. No major barriers to patient understanding were identified. An opportunity to ask questions regarding the treatment plan was provided. All questions were answered. The patient expressed understanding and agreement with the above treatment plan. The patient is aware they should contact our office by phone for worsening of their current condition or the appearance of new urologic symptoms. Compliance is encouraged with any medications and followup testing that is ordered. It is a privilege to participate in the urologic care of your patient. If you have any questions or concerns regarding treatment for the above conditions, or other urologic issues, please do not hesitate to contact me. The office telephone contact is [phone]. This note is constructed using voice recognition software. While every effort has been made to ensure accuracy rebeamer errors may have been included. Yours sincerely, Dr Shiv Garcia MD, [facility] - Urology Providers of Expert, Compassionate Care for the Genitourinary System Coding Level of Care Code Est Pt Level 4 (59359) Diagnoses Erectile dysfunction N52.9 BPH w urinary obs/LUTS N40.1; N13.8 CPT Codes Post Residual Void - PVR CPT Code: 90254-Carg Void Residual by ultrasound ([id number])
== END 2024-09-20 14:03 | disposition home or self-care (01) ==
PROVIDERS: PCP Internal Medicine; Visit Provider Urology
DX: N52.9 Male erectile dysfunction, unspecified (principal); N40.1 Benign prostatic hyperplasia with lower urinary tract symptoms; N13.8 Other obstructive and reflux uropathy
CPT/HCPCS: 99214

== ENCOUNTER 2024-09-30 10:57 | Outpatient (AMB) | payer MEDICARE, SELFPAY ==
[2024-09-30 11:02] VITALS: BP 148/80; PULSE 64; BMI 23.1
--- NOTE | 2024-09-30 11:02 | A.OFFVIS_ITS ---
Vital Signs 09/30/24 11:02 Height 5 ft 8 in Weight 152 lb 1.903 oz BMI 23.1 BP 148/80 H Blood Pressure Location Lt brachial Position Sitting Pulse 64 Pulse Source Monitor Intake Visit Reasons: 1 year followup w/ekg Allergies hydrochlorothiazide Allergy (Intermediate, Verified 09/20/24 13:25) frequency Medication List - Last Reconciled 09/30/24 by Varinder Jones MD aspirin (Adult Low Dose Aspirin) 81 mg PO DAILY atorvastatin 80 mg PO DAILY blood pressure monitor (Blood Pressure Kit) As directed clotrimazole 1% 1 appl topical BID 4 weeks ezetimibe 10 mg PO DAILY finasteride 5 mg PO DAILY 90 days hydrocortisone acetate (Anucort-HC) 25 mg [place] BEDTIME lisinopril 10 mg PO DAILY metoprolol succinate ER 50 mg PO DAILY HPI Comments Details: Josesito comes for follow-up. He denies any cardiac symptoms. Remains functional and active. Denies any exertional chest pain or shortness of breath. Blood pressures been elevated recently started on lisinopril and says a blood pressures been improving. This is being pursue through office. Denies any lightheadedness, syncope. No heart failure symptoms. No prolonged palpitation irregular heartbeat. No bleeding issues or neurologic events. He said he has to undergo dental procedure in the near future for carries with possible extraction is worried about it [facility] Medical History Physical exam LFT elevation Constipation Hemorrhoid Elevated prostate specific antigen [PSA] High prostate specific antigen (PSA) Peripheral vascular disease Hypogonadism Coronary artery disease Hypercholesterolemia Erectile dysfunction Hypertension Fall Shoulder pain, right Surgical History Stented coronary artery Family History Father Hypertension Mother Hypertension Social History Housing: House Alcohol intake: current Alcohol intake frequency: holidays/special occasions only Comment: once glass once a month Patient Tobacco Use Status: Never used Tobacco Tobacco use type: Cigarette e-Cigarette/Vaping Use: Never Used Second Hand Smoke Exposure: No service: No Current occupational status: employed 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 Current occupational exposures/hazards: No Cognitive needs: No Hearing needs: No Vision needs: Yes Review of Systems Const Denies weakness ENT Denies dizziness Card Denies chest pain, Denies chest pain with activity, Denies syncope, Denies rapid heart rate, Denies pedal edema, Denies edema, Denies leg edema, Denies lightheadedness, Denies palpitations, Denies dyspnea, Denies dyspnea on exertion and Denies orthopnea Resp Denies cough, Denies dyspnea and Denies dyspnea on exertion GI Denies hematochezia and Denies change in stool character Musc Denies abnormal gait, Denies muscle cramps, Denies muscle weakness, Denies numbness, Denies radiating pain into limb and Denies tingling Neuro Denies abnormal gait, Denies dizziness, Denies syncope, Denies numbness, Denies tingling and Denies weakness Endo Denies palpitations Physical Exam Vital Signs: Last Vital Signs Pulse 64 09/30/24 11:02 BP 148/80 H 09/30/24 11:02 BMI result Body Mass Index 23.1 Const General: cooperative, comfortable, no acute distress, alert and awake Nutritional Appearance: thin Orientation/consciousness: patient oriented x3 Limitations: no limitations Neck Neck: Yes trachea midline, Yes supple and Yes no JVD Carotids: no bruits Resp Effort & Inspection: normal respiratory effort Auscultation: clear to auscultation bilaterally Cardio Jugular venous distension: no JVD Palpation: normal PMI Rate: regular rate Rhythm: regular rhythm Heart sounds: S1 normal heart sound present and S2 normal heart sound present GI Auscultation: normal bowel sounds Skin General skin exam: no rashes or lesions noted Neuro General: patient oriented x3 and no focal motor deficits Extrem General: Yes no clubbing, cyanosis or edema Psych Appearance: grossly normal Office Procedures EKG Details: EKG shows normal sinus rhythm with voltage criteria [place] LVH 16326-[id number], Complete Assessment & Plan Assessment & Plan (1) Coronary artery disease: Comment: MARSHALL CAD LAD 02/14/2018 Dr. [facility] Medical Code(s): I25.10 - Atherosclerotic heart disease of [place] coronary artery without angina pectoris Category: Medical Qualifiers: Coronary Disease-Associated Artery/Lesion type: [place] artery [place] vs. transplanted heart: [place] heart Associated angina: without angina Qualified Code(s): I25.10 - Atherosclerotic heart disease of [place] coronary artery without angina pectoris Plan: Coronary artery disease status post MARSHALL to LAD for acute coronary syndrome. Since then he has done well. No recurrent symptoms suggestive of angina. No further workup is indicated at this point time. Continue aggressive medical therapy. Continue lifelong aspirin therapy. Continue aggressive blood pressure control, see below. Continue current high-intensity statin therapy with ezetimibe. LDL is 71 mg/dL slightly elevated advised to pursue more intense lifestyle modification. Advised to call me with any new symptoms. He is optimized to undergo dental procedures with no prophylactic antibiotic required. Hopefully continue aspirin through the procedure (2) Hypertension: Code(s): I10 - Essential (primary) hypertension Category: Medical Qualifiers: Hypertension type: essential hypertension Qualified Code(s): I10 - Essential (primary) hypertension Plan: Hypertension which is not well optimized advised to monitor blood pressure at home maintain a log. Goal blood pressure less than 130/84. Low-salt diet was recommended. This is being pursue through office. Lisinopril was recently added. Continue to uptitrate lisinopril to target goal blood pressure less than 130/84. If blood pressure not well control can add amlodipine to his regimen as well. Follow up in the clinic in 1 year's time, sooner p.r.n.. Thank you for allowing me to partake in his care Coding Level of Care Code Est Pt Level 4 (25520) Complex EM visit Add On G2211 Diagnoses Coronary artery disease involving [place] coronary artery of [place] heart without angina pectoris I25.10 Coronary Disease-Associated Artery/Lesion type: [place] artery [place] vs. transplanted heart: [place] heart Associated angina: without angina Essential hypertension I10 Hypertension type: essential hypertension CPT Codes EKG - CPT: 27546-Ydvyreasvzbleubbc, Complete ([id number])
== END 2024-09-30 11:27 | disposition home or self-care (01) ==
PROVIDERS: PCP Internal Medicine; Visit Provider Internal Medicine Cardiovascular Disease
DX: I25.10 Atherosclerotic heart disease of native coronary artery without angina pectoris (principal); I10 Essential (primary) hypertension
CPT/HCPCS: 93010; 99214; G2211

== ENCOUNTER → 2024-09-30 10:57 | Outpatient (BNVA) | payer MEDICARE, SELFPAY | PROVIDERS: PCP Internal Medicine; Visit Provider Internal Medicine Cardiovascular Disease | DX: I25.10 Atherosclerotic heart disease of native coronary artery without angina pectoris (principal); I10 Essential (primary) hypertension | CPT/HCPCS: 93005; 99212 ==

== ENCOUNTER 2024-10-15 08:29 | Outpatient (AMB) | payer MEDICARE, SELFPAY ==
[2024-10-15 08:31] VITALS: BP 156/98; PULSE 61; O2SAT 97; BMI 23.4
--- NOTE | 2024-10-15 08:31 | MHC.PC.OV ---
Vital Signs 10/15/24 08:31 10/15/24 09:06 Height 5 ft 8 in Weight 154 lb BMI 23.4 BP 156/98 H 180/98 H Blood Pressure Location Lt brachial Lt brachial Position Sitting Sitting Pulse 61 Pulse Source Pulse Oximeter Pulse Oximetry (%) 97 Oxygen Delivery Method Room Air Intake Visit Reasons: Hypertension Electric Needle Specialist Required: Yes Allergies hydrochlorothiazide Allergy (Intermediate, Verified 10/15/24 08:32) frequency Medication List - Last Reconciled 10/15/24 by Jennifer Perera PA-C aspirin (Adult Low Dose Aspirin) 81 mg PO DAILY atorvastatin 80 mg PO DAILY blood pressure monitor (Blood Pressure Kit) As directed clotrimazole 1% 1 appl topical BID 4 weeks ezetimibe 10 mg PO DAILY finasteride 5 mg PO DAILY 90 days hydrocortisone acetate (Anucort-HC) 25 mg ID BEDTIME lisinopril 10 mg PO DAILY metoprolol succinate ER 50 mg PO DAILY Tobacco use date assessed: 02/12/24 Fall risk assessment: No Falls in past year Dental Screening Dental Screen Date: 09/12/24 HPI Hypertension HPI Details 79-year-old male with coronary artery disease elevated PSA hypercholesterolemia hypertension last seen in 08/2024 by coming in for follow up.? In review of the notes patient was seen by Cardiology 09/30/2024 advised to continue to up titrate lisinopril to target goal blood pressure less than 130/84 consider amlodipine. Patient was also seen by Urology 09/20/2024 started on finasteride for BPH follow up in 6 months Patient states he does not take his blood pressures at home. Denies any headache, chest pain, shortness of breath or changes in his vision. [facility] Medical History Physical exam LFT elevation Constipation Hemorrhoid Elevated prostate specific antigen [PSA] High prostate specific antigen (PSA) Peripheral vascular disease Hypogonadism Coronary artery disease Hypercholesterolemia Erectile dysfunction Hypertension Fall Shoulder pain, right Surgical History Stented coronary artery Family History Father Hypertension Mother Hypertension Social History (Reviewed 10/15/24 @ 08:48 by CARLOS A Pace Housing: House Alcohol intake: current Alcohol intake frequency: holidays/special occasions only Comment: once glass once a month Patient Tobacco Use Status: Never used Tobacco Tobacco use type: Cigarette e-Cigarette/Vaping Use: Never Used Second Hand Smoke Exposure: No service: No Current occupational status: employed 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 @ [employer] Current occupational exposures/hazards: No Cognitive needs: No Hearing needs: No Vision needs: Yes Questionnaire Thrive Questionnaire Date Thrive assessed: 09/12/24 I am a: Patient What is your living situation today?: I have a steady place to live Within the past 12 months, did the food you bought not last and you didn't have the money to get more?: Never true Within the past 12 months, did you worry whether your food would run out before you got money to buy more?: Never true Do you have trouble paying for medicines?: No Do you have trouble getting transportation to medical appointments?: No Do you have trouble paying your heating and electricity bill?: No Do you have trouble taking care of your child, family member or friend?: No Do you have trouble with day-to-day activities such as bathing, preparing meals, shopping, managing finances, etc.?: No Are you currently unemployed and looking for a job?: Yes Are you interested in more education?: No Please select the resources that you would like help with: None Currently or been in a relationship where the following occur: I choose not to answer THRIVE Score: 0 AUDIT C Alcohol Use Questionnaire (AUDIT-C) 1. How often do you have a drink containing alcohol?: Never Total Score: 0 FLACO-7 AMB Questionnaire FLACO-7 Date FLACO - 7 assessed: 08/15/24 Source: Developed by Drs. Bret Arzola, Paris Monet, Jon García and colleagues, with an educational neo from [employer]. Review of Systems Const Denies body aches, Denies chills, Denies fever(s), Denies headache(s) and Denies poor appetite Eyes Reports no additional complaints ENT Denies dizziness and Denies headache(s) Card Denies chest pain, Denies syncope, Denies edema, Denies irregular heart rhythm, Denies lightheadedness and Denies dyspnea Resp Denies cough and Denies dyspnea GI Denies abdominal pain, Denies constipation, Denies diarrhea, Denies nausea and Denies vomiting Reports no additional complaints Musc Reports no additional complaints and Denies abnormal gait Skin/Breast Reports system reviewed and no additional complaints, except as documented Neuro Denies abnormal gait, Denies dizziness, Denies syncope and Denies headache(s) Psych Reports no additional complaints Physical exam (Primary Care) Vital Signs: Last Vital Signs Pulse 61 10/15/24 08:31 BP 156/98 H 10/15/24 08:31 Pulse Ox 97 10/15/24 08:31 Oxygen Delivery Method Room Air 10/15/24 08:31 BMI result Body Mass Index 23.4 Tobacco/Smoking Status: Tobacco use Status Tobacco use date assessed 02/12/24 10/15/24 08:37 Patient Tobacco Use Status Never used Tobacco 10/15/24 08:37 Tobacco use type Cigarette 10/15/24 08:37 e-Cigarette/Vaping Use Never Used 10/15/24 08:37 Thrive Assessment: Date of Thrive Assessment Date Thrive assessed 09/12/24 10/15/24 08:37 Currently or been in a relationship where the following occur: I choose not to answer Const General: cooperative, healthy appearing, comfortable and no acute distress Orientation/consciousness: patient oriented x3 HENMT Head: Yes normocephalic Ears: hearing grossly normal bilaterally General nose exam: Normal external nose present Eyes General: appearance normal, both eyes and all related structures Conjunctivae: conjunctivae normal Neck Neck: Yes full ROM and Yes no lymphadenopathy Resp Effort & Inspection: normal respiratory effort Auscultation: clear to auscultation bilaterally, no crackles, no rales, no rhonchi and no wheezes Cardio Rate: regular rate Rhythm: regular rhythm Skin General skin exam: no rashes or lesions noted Neuro General: patient oriented x3 Gait exam (Neuro): Normal gait present Extrem General: Yes normal to inspection, Yes full ROM and No edema Psych Affect: normal affect Attitude: cooperative Insight: Good insight present (Psych) Judgement: Good judgement present (Psych) Coding Level of Care Code Est Pt Level 3 (98462) Diagnoses BPH w urinary obs/LUTS N40.1; N13.8 Coronary artery disease involving [place] coronary artery of [place] heart without angina pectoris I25.10 Coronary Disease-Associated Artery/Lesion type: [place] artery [place] vs. transplanted heart: [place] heart Associated angina: without angina Hypercholesterolemia E78.00 Essential hypertension I10 Hypertension type: essential hypertension Assessment & Plan Assessment & Plan (1) BPH w urinary obs/LUTS: Code(s): N40.1 - Benign prostatic hyperplasia with lower urinary tract symptoms; N13.8 - Other obstructive and reflux uropathy Category: Medical Plan: Recently started on finasteride by Dr. Garcia. (2) Coronary artery disease: Comment: MARSHALL CAD LAD 02/14/2018 Dr. Love [facility] Medical Code(s): I25.10 - Atherosclerotic heart disease of [place] coronary artery without angina pectoris Category: Medical Qualifiers: Coronary Disease-Associated Artery/Lesion type: [place] artery [place] vs. transplanted heart: [place] heart Associated angina: without angina Qualified Code(s): I25.10 - Atherosclerotic heart disease of [place] coronary artery without angina pectoris Plan: Advised good control of cholesterol, blood pressure and blood sugars. Target blood pressure less than 130 over 84. (3) Hypercholesterolemia: Code(s): E78.00 - Pure hypercholesterolemia, unspecified Category: Medical Plan: Avoid foods that are high in cholesterol such as red meat, fried foods, eggs and baked goods. Triglyceride goal of less than 150 and LDL goal of less than 70. Continue on atorvastatin 80 mg and Zetia 10 mg (4) Hypertension: Code(s): I10 - Essential (primary) hypertension Category: Medical Qualifiers: Hypertension type: essential hypertension Qualified Code(s): I10 - Essential (primary) hypertension Plan: Continue on current blood pressure medication. Avoid salt intake and encourage healthy diet and regular exercise. Blood pressure elevated on exam 156/90 and 180/90 when retaken. We will increase lisinopril to 20 mg and monitor kidney function in 2 weeks. Patient declining 4 week appointment and we will follow up in 6 weeks. Plan This note was constructed using voice recognition software. While every effort has been made to ensure accuracy and food sampler, still areas may have been included sometimes these areas may affect the content or meeting of the given symptoms. Total time spent caring for the patient today was 20 minutes. This includes time spent before the visit reviewing the chart, time spent during the visit, and time spent after the visit and documentation. Orders: Orders Comprehensive Met. Panel 2 Weeks I10 - Essential (primary) hypertension Medications: New lisinopril 20 mg PO DAILY 30 tabs 2RF Discontinued lisinopril Discontinued Reason: Patient no longer taking 10 mg PO DAILY 30 tabs 3RF I10 - Essential (primary) hypertension
[2024-10-15 09:06] VITALS: BP 180/98
== END 2024-10-15 09:04 | disposition home or self-care (01) ==
PROVIDERS: PCP Internal Medicine
DX: N40.1 Benign prostatic hyperplasia with lower urinary tract symptoms (principal); N13.8 Other obstructive and reflux uropathy; I25.10 Atherosclerotic heart disease of native coronary artery without angina pectoris; E78.00 Pure hypercholesterolemia, unspecified; I10 Essential (primary) hypertension

== ENCOUNTER → 2024-10-15 08:29 | Outpatient (BNVA) | payer MEDICARE, SELFPAY | PROVIDERS: PCP Internal Medicine | DX: N40.1 Benign prostatic hyperplasia with lower urinary tract symptoms (principal); N13.8 Other obstructive and reflux uropathy; I25.10 Atherosclerotic heart disease of native coronary artery without angina pectoris; I10 Essential (primary) hypertension; E78.00 Pure hypercholesterolemia, unspecified | CPT/HCPCS: 99212 ==

== ENCOUNTER 2024-11-26 07:49 | Outpatient (AMB) | payer MEDICARE, SELFPAY ==
[2024-11-26 08:32] VITALS: BP 132/84; PULSE 83; O2SAT 96; BMI 24.0
--- NOTE | 2024-11-26 08:32 | A.OFFPC_ITS ---
Vital Signs 11/26/24 08:32 11/26/24 09:12 Height 5 ft 8 in Weight 158 lb BMI 24.0 BP 132/84 180/92 H Blood Pressure Location Lt brachial Lt brachial Position Sitting Sitting Pulse 83 Pulse Source Pulse Oximeter Pulse Oximetry (%) 96 Oxygen Delivery Method Room Air Intake Visit Reasons: f/u HTN Learning Coach Required: No Accompanied by: Self / Same As Patient Allergies hydrochlorothiazide Allergy (Intermediate, Verified 11/26/24 08:33) frequency Medication List - Last Reconciled 11/26/24 by Jennifer Perera PA-C aspirin (Adult Low Dose Aspirin) 81 mg PO DAILY atorvastatin 80 mg PO DAILY blood pressure monitor (Blood Pressure Kit) As directed clotrimazole 1% 1 appl topical BID 4 weeks ezetimibe 10 mg PO DAILY finasteride 5 mg PO DAILY 90 days hydrocortisone acetate (Anucort-HC) 25 mg [place] BEDTIME lisinopril 20 mg PO DAILY metoprolol succinate ER 50 mg PO DAILY Tobacco use date assessed: 11/26/24 Fall risk assessment: No Falls in past year Last assessed Fall Risk: 11/26/24 Dental Screening Dental Screen Date: 11/26/24 Did you have a dental visit in the last 12 months?: No Did you have a dental problem in the last 6 months where you did not have access to dental care?: No Was dental information given to patient?: Patient has dentist HPI f/u HTN HPI Details 79-year-old male with coronary artery di sease elevated PSA hypercholesterolemia hypertension last seen in 09/2024 coming in for follow up. Patient tells us today he has been taking his lisinopril 20 mg and has been working on exercising as well. He does not walk outside but has walking up and down the stairs for exercise and cycling on a stationary bike. Denies any headaches, chest pains or shortness of breath. He has not been monitoring his blood pressure at home and does not have the blood pressure monitor. [facility] Medical History Physical exam LFT elevation Constipation Hemorrhoid Elevated prostate specific antigen [PSA] High prostate specific antigen (PSA) Peripheral vascular disease Hypogonadism Coronary artery disease Hypercholesterolemia Erectile dysfunction Hypertension Fall Shoulder pain, right Surgical History Stented coronary artery Family History Father Hypertension Mother Hypertension Social History Housing: House Alcohol intake: current Alcohol intake frequency: holidays/special occasions only Comment: once glass once a month Patient Tobacco Use Status: Never used Tobacco Tobacco use type: Cigarette e-Cigarette/Vaping Use: Never Used Second Hand Smoke Exposure: No service: No Current occupational status: employed 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 1. Little interest or pleasure in doing things: not at all 2. Feeling down, depressed, or hopeless: not at all 3. Trouble falling or staying asleep, or sleeping too much: not at all 4. Feeling tired or having little energy: not at all 5. Poor appetite or overeating: not at all 6. Feeling bad about yourself - or that you are a failure or have let yourself or your family down: not at all 7. Trouble concentrating on things, such as reading the newspaper or watching television: not at all 8. Moving or speaking so slowly that other people could have noticed. Or the opposite - being so fidgety or restless that you have been moving around a lot more than usual: not at all 9. Thoughts that you would be better off or of hurting yourself in some way: not at all Total score: 0 Source: Developed by Drs. Bret Arzola, Paris Monet, Jon García and colleagues, with an educational neo from [employer]. Thrive Questionnaire Date Thrive assessed: 11/26/24 I am a: Patient What is your living situation today?: I have a steady place to live Within the past 12 months, did the food you bought not last and you didn't have the money to get more?: Never true Within the past 12 months, did you worry whether your food would run out before you got money to buy more?: Never true Do you have trouble paying for medicines?: No Do you have trouble getting transportation to medical appointments?: No Do you have trouble paying your heating and electricity bill?: No Do you have trouble taking care of your child, family member or friend?: No Do you have trouble with day-to-day activities such as bathing, preparing meals, shopping, managing finances, etc.?: No Are you currently unemployed and looking for a job?: Yes Are you interested in more education?: No Please select the resources that you would like help with: None Currently or been in a relationship where the following occur: I choose not to answer THRIVE Score: 0 AUDIT C Alcohol Use Questionnaire (AUDIT-C) 1. How often do you have a drink containing alcohol?: Never Total Score: 0 FLACO-7 AMB Questionnaire FLACO-7 Date FLACO - 7 assessed: 11/26/24 Feeling nervous, anxious, or on edge: 0 = Not at all Not being able to stop or control worryin = Not at all Worrying too much about different things: 0 = Not at all Trouble relaxin = Not at all Being so restless that it is hard to sit still: 0 = Not at all Becoming easily annoyed or irritable: 0 = Not at all Feeling afraid as if something awful might happen: 0 = Not at all Total FLACO-7 score (0-4 normal; 5-9 mild; 10-14 moderate; 15-21 severe): 0 Source: Developed by Drs. Bret Arzola, Paris Monet, Jon García and colleagues, with an educational neo from [employer]. Review of Systems Const Denies body aches, Denies chills, Denies fever(s), Denies headache(s) and Denies poor appetite Eyes Reports no additional complaints ENT Denies dizziness and Denies headache(s) Card Denies chest pain, Denies syncope, Denies edema, Denies irregular heart rhythm, Denies lightheadedness and Denies dyspnea Resp Denies cough and Denies dyspnea GI Denies abdominal pain, Denies nausea and Denies vomiting Reports no additional complaints Musc Reports no additional complaints and Denies abnormal gait Skin/Breast Reports system reviewed and no additional complaints, except as documented Neuro Denies abnormal gait, Denies dizziness, Denies syncope and Denies headache(s) Psych Reports no additional complaints Physical exam (Primary Care) Vital Signs: Oxygen Delivery Method Room Air 11/26/24 08:32 Tobacco/Smoking Status: Tobacco use Status Tobacco use date assessed 11/26/24 11/26/24 08:35 Patient Tobacco Use Status Never used Tobacco 11/26/24 08:35 Tobacco use type Cigarette 11/26/24 08:35 e-Cigarette/Vaping Use Never Used 11/26/24 08:35 PHQ-9: PHQ-9 Score PHQ-9: Total score 0 11/26/24 08:40 Thrive Assessment: Date of Thrive Assessment Date Thrive assessed 11/26/24 11/26/24 08:35 Currently or been in a relationship where the following occur: I choose not to answer Const General: cooperative, healthy appearing, comfortable and no acute distress Orientation/consciousness: patient oriented x3 HENMT Head: Yes normocephalic Ears: hearing grossly normal bilaterally General nose exam: Normal external nose present Eyes General: appearance normal, both eyes and all related structures Conjunctivae: conjunctivae normal Neck Neck: Yes full ROM and Yes no lymphadenopathy Resp Effort & Inspection: normal respiratory effort Auscultation: clear to auscultation bilaterally, no crackles, no rales, no rhonchi and no wheezes Cardio Rate: regular rate Rhythm: regular rhythm Skin General skin exam: no rashes or lesions noted Neuro General: patient oriented x3 Gait exam (Neuro): Normal gait present Extrem General: Yes normal to inspection, Yes full ROM and No edema Psych Affect: normal affect Attitude: cooperative Insight: Good insight present (Psych) Judgement: Good judgement present (Psych) Coding Level of Care Code Est Pt Level 4 (63416) Diagnoses Coronary artery disease involving [place] coronary artery of [place] heart without angina pectoris I25.10 Coronary Disease-Associated Artery/Lesion type: [place] artery [place] vs. transplanted heart: [place] heart Associated angina: without angina Essential hypertension I10 Hypertension type: essential hypertension Hypercholesterolemia E78.00 Assessment & Plan Assessment & Plan (1) Coronary artery disease: Comment: MARSHALL CAD LAD 02/14/2018 Dr. Love [facility] Medical Code(s): I25.10 - Atherosclerotic heart disease of [place] coronary artery without angina pectoris Category: Medical Qualifiers: Coronary Disease-Associated Artery/Lesion type: [place] artery [place] vs. transplanted heart: [place] heart Associated angina: without angina Qualified Code(s): I25.10 - Atherosclerotic heart disease of [place] coronary artery without angina pectoris Plan: Advised good control of blood pressure, blood sugar and cholesterol. LDL goal should be less than 70 and blood pressure goal closer to 130/80. (2) Hypertension: Code(s): I10 - Essential (primary) hypertension Category: Medical Qualifiers: Hypertension type: essential hypertension Qualified Code(s): I10 - Essential (primary) hypertension Plan: Avoid salt intake and encourage healthy diet and regular exercise. Patient tells us today his cooks with lots of salt advised to discontinue the seasoning at this time. Currently on lisinopril 20 mg and has not had blood work done. Given borderline kidney function we will not increase lisinopril further until blood work is done. Blood pressure elevated 180/92 on exam today we will add amlodipine 2.5 mg to medication regimen and follow up at next visit with Dr. Bhatia. Reminded patient about blood work. Prescription recent for blood pressure cuff advised patient to take blood pressure at home 3-4 times per week and bring log to next appointment. Patient is declining nurse navigation referral. (3) Hypercholesterolemia: Code(s): E78.00 - Pure hypercholesterolemia, unspecified Category: Medical Plan: Avoid foods that are high in cholesterol such as red meat, fried foods, eggs and baked goods. Triglyceride goal of less than 150 and LDL goal of less than 70. Continue on atorvastatin 80 Plan This note was constructed using voice recognition software. While every effort has been made to ensure accuracy and booth cashier, still areas may have been included sometimes these areas may affect the content or meeting of the given symptoms. Total time spent caring for the patient today was 20 minutes. This includes time spent before the visit reviewing the chart, time spent during the visit, and time spent after the visit and documentation. Medications: New amlodipine 2.5 mg PO DAILY 90 tabs 2RF amlodipine 2.5 mg PO DAILY 90 tabs 2RF Refilled blood pressure monitor (Blood Pressure Kit) As directed 1 ea 0RF I10 - Essential (primary) hypertension lisinopril 20 mg PO DAILY 30 tabs 2RF metoprolol succinate ER 50 mg PO DAILY 90 tabs 3RF I10 - Essential (primary) hypertension ezetimibe 10 mg PO DAILY 90 tabs 2RF E78.00 - Pure hypercholesterolemia, unspecified, I25.10 - Atherosclerotic heart disease of [place] coronary artery without angina pectoris
[2024-11-26 09:12] VITALS: BP 180/92
== END 2024-11-26 09:26 | disposition home or self-care (01) ==
PROVIDERS: PCP Internal Medicine
DX: I25.10 Atherosclerotic heart disease of native coronary artery without angina pectoris (principal); I10 Essential (primary) hypertension; E78.00 Pure hypercholesterolemia, unspecified

== ENCOUNTER → 2024-11-26 07:49 | Outpatient (BNVA) | payer MEDICARE, SELFPAY | PROVIDERS: PCP Internal Medicine | DX: I25.10 Atherosclerotic heart disease of native coronary artery without angina pectoris (principal); I10 Essential (primary) hypertension; E78.00 Pure hypercholesterolemia, unspecified | CPT/HCPCS: 96127; 99212 ==

== ENCOUNTER 2025-01-04 07:11 | Outpatient (REF) | payer MEDICARE, SELFPAY ==
[2025-01-04 09:01] LABS: PSA,Total (Free>4and<10) 8.13 ng/mL (0.00-4.00)
[2025-01-07 12:08] LABS: Free Prostate Spec Ag 1.4 ng/mL; Percent Free Prostate Spec Ag 18 % (calc) (>25); Prostate Specific Ag Total 7.8 ng/mL (< OR = 4.0)
== END 2025-01-04 07:12 | disposition home or self-care (01) ==
LOC: HO.LAB 07:11
PROVIDERS: Urology; PCP Internal Medicine
DX: N40.1 Benign prostatic hyperplasia with lower urinary tract symptoms (principal); N13.8 Other obstructive and reflux uropathy; Z12.5 Encounter for screening for malignant neoplasm of prostate
CPT/HCPCS: 36415; 84153; 84154

== ENCOUNTER 2025-01-28 13:26 | Outpatient (AMB) | payer MEDICARE, SELFPAY ==
[2025-01-28 13:33] VITALS: BP 150/90; PULSE 91; O2SAT 98; BMI 22.4
--- NOTE | 2025-01-28 13:33 | MHC.PC.OV ---
Vital Signs 01/28/25 13:33 Height 5 ft 8 in Weight 147 lb 6 oz BMI 22.4 BP 150/90 H Blood Pressure Location Lt brachial Position Sitting Pulse 91 Pulse Source Pulse Oximeter Pulse Oximetry (%) 98 Oxygen Delivery Method Room Air Intake Visit Reasons: Hypertension Mobile Home Installer Required: No Accompanied by: Self / Same As Patient Allergies hydrochlorothiazide Allergy (Intermediate, Verified 01/28/25 13:34) frequency Medication List - Last Reconciled 01/28/25 by Addie Bhatia MD amlodipine 5 mg PO DAILY aspirin (Adult Low Dose Aspirin) 81 mg PO DAILY atorvastatin 80 mg PO DAILY blood pressure monitor (Blood Pressure Kit) As directed clotrimazole 1% 1 appl topical BID 4 weeks ezetimibe 10 mg PO DAILY finasteride 5 mg PO DAILY 90 days hydrocortisone acetate (Anucort-HC) 25 mg UT BEDTIME lisinopril 20 mg PO DAILY metoprolol succinate ER 50 mg PO DAILY Tobacco use date assessed: 01/28/25 Fall risk assessment: No Falls in past year Last assessed Fall Risk: 01/28/25 Dental Screening Dental Screen Date: 01/28/25 Did you have a dental visit in the last 12 months?: No Did you have a dental problem in the last 6 months where you did not have access to dental care?: No Was dental information given to patient?: No [facility] Medical History (Updated 01/28/25 @ 14:05 by Addie Bhatia MD) Hemorrhoid Physical exam LFT elevation Constipation Elevated prostate specific antigen [PSA] High prostate specific antigen (PSA) Peripheral vascular disease Hypogonadism Coronary artery disease Hypercholesterolemia Erectile dysfunction Hypertension Fall Shoulder pain, right Surgical History Stented coronary artery Family History Father Hypertension Mother Hypertension Social History Housing: House Alcohol intake: current Alcohol intake frequency: holidays/special occasions only Comment: once glass once a month Patient Tobacco Use Status: Never used Tobacco Tobacco use type: Cigarette e-Cigarette/Vaping Use: Never Used Second Hand Smoke Exposure: No service: No Current occupational status: employed 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 1. Little interest or pleasure in doing things: not at all 2. Feeling down, depressed, or hopeless: not at all 3. Trouble falling or staying asleep, or sleeping too much: not at all 4. Feeling tired or having little energy: not at all 5. Poor appetite or overeating: not at all 6. Feeling bad about yourself - or that you are a failure or have let yourself or your family down: not at all 7. Trouble concentrating on things, such as reading the newspaper or watching television: not at all 8. Moving or speaking so slowly that other people could have noticed. Or the opposite - being so fidgety or restless that you have been moving around a lot more than usual: not at all 9. Thoughts that you would be better off or of hurting yourself in some way: not at all Total score: 0 Source: Developed by Drs. Bret Arzola, Paris Monet, Jon García and colleagues, with an educational neo from [employer]. Thrive Questionnaire Date Thrive assessed: 01/28/25 I am a: Patient What is your living situation today?: I have a steady place to live Within the past 12 months, did the food you bought not last and you didn't have the money to get more?: Never true Within the past 12 months, did you worry whether your food would run out before you got money to buy more?: Never true Do you have trouble paying for medicines?: No Do you have trouble getting transportation to medical appointments?: No Do you have trouble paying your heating and electricity bill?: No Do you have trouble taking care of your child, family member or friend?: No Do you have trouble with day-to-day activities such as bathing, preparing meals, shopping, managing finances, etc.?: No Are you currently unemployed and looking for a job?: Yes Are you interested in more education?: No Please select the resources that you would like help with: None Currently or been in a relationship where the following occur: I choose not to answer THRIVE Score: 0 AUDIT C Alcohol Use Questionnaire (AUDIT-C) 1. How often do you have a drink containing alcohol?: Never 3. How often do you have six or more drinks on one occasion?: Never Total Score: 0 FLACO-7 AMB Questionnaire FLACO-7 Date FLACO - 7 assessed: 01/28/25 Feeling nervous, anxious, or on edge: 0 = Not at all Not being able to stop or control worryin = Not at all Worrying too much about different things: 0 = Not at all Trouble relaxin = Not at all Being so restless that it is hard to sit still: 0 = Not at all Becoming easily annoyed or irritable: 0 = Not at all Feeling afraid as if something awful might happen: 0 = Not at all Total FLACO-7 score (0-4 normal; 5-9 mild; 10-14 moderate; 15-21 severe): 0 Source: Developed by Drs. Bret Arzola, Paris Monet, Jon García and colleagues, with an educational neo from [employer]. Physical exam (Primary Care) Vital Signs: Last Vital Signs Pulse 91 01/28/25 13:33 BP 150/90 H 01/28/25 13:33 Pulse Ox 98 01/28/25 13:33 Oxygen Delivery Method Room Air 01/28/25 13:33 BMI result Body Mass Index 22.4 Tobacco/Smoking Status: Tobacco use Status Tobacco use date assessed 01/28/25 01/28/25 13:35 Patient Tobacco Use Status Never used Tobacco 01/28/25 13:35 Tobacco use type Cigarette 01/28/25 13:35 e-Cigarette/Vaping Use Never Used 01/28/25 13:35 PHQ-9: PHQ-9 Score PHQ-9: Total score 0 01/28/25 13:51 Thrive Assessment: Date of Thrive Assessment Date Thrive assessed 01/28/25 01/28/25 13:35 Currently or been in a relationship where the following occur: I choose not to answer Const General: alert; No acute distress Eyes Conjunctivae: conjunctivae normal Resp Auscultation: clear to auscultation bilaterally Cardio Rate: regular rate Rhythm: regular rhythm GI Inspection: Yes normal to inspection Extrem General: Yes normal to inspection and No edema Coding Level of Care Code Est Pt Level 4 (28088) Diagnoses Coronary artery disease involving [place] coronary artery of [place] heart without angina pectoris I25.10 Associated angina: without angina Coronary Disease-Associated Artery/Lesion type: [place] artery [place] vs. transplanted heart: [place] heart Hypercholesterolemia E78.00 Essential hypertension I10 Hypertension type: essential hypertension Elevated prostate specific antigen [PSA] R97.20 Hemorrhoid K64.9 Vision changes H53.9 Assessment & Plan Assessment & Plan (1) Coronary artery disease: Comment: MARSHALL CAD LAD 02/14/2018 Dr. Love [facility] Medical Code(s): I25.10 - Atherosclerotic heart disease of [place] coronary artery without angina pectoris Category: Medical Qualifiers: Associated angina: without angina Coronary Disease-Associated Artery/Lesion type: [place] artery [place] vs. transplanted heart: [place] heart Qualified Code(s): I25.10 - Atherosclerotic heart disease of [place] coronary artery without angina pectoris Plan: Control the cholesterol, weight, blood pressure,on aspirin 81 mg once a day (2) Hypercholesterolemia: Code(s): E78.00 - Pure hypercholesterolemia, unspecified Category: Medical Plan: Avoid fried foods, chicken skin, eggs, butter margarine, pastries and meat. Be it pork or beef they have a lot of cholesterol LDL goal of less than 70 and triglyceride of less than 150 on Zetia 10 mg once a day and atorvastatin 80 mg once a day 08/09/2024 last blood work LDL of 71 (3) Hypertension: Code(s): I10 - Essential (primary) hypertension Category: Medical Qualifiers: Hypertension type: essential hypertension Qualified Code(s): I10 - Essential (primary) hypertension Plan: Continue with blood pressure medication. Decrease salt intake and exercise on amlodipine 2.5 mg once a day lisinopril 20 mg once a day and metoprolol 50 mg once a day (4) Elevated prostate specific antigen [PSA]: Code(s): R97.20 - Elevated prostate specific antigen [PSA] Category: Medical Plan: Patient is being followed up by Urology and last PSA done was 7.8 01/09/2025 (5) Hemorrhoid: Code(s): K64.9 - Unspecified hemorrhoids Category: Medical (6) Vision changes: Code(s): H53.9 - Unspecified visual disturbance Category: Medical Plan History of Present Illness The patient is an 79-year-old male presenting for follow-up of hypertension and hypercholesterolemia. He is on a regimen of amlodipine, lisinopril, and metoprolol to manage blood pressure, which has been noted to be inconsistent. The patient is actively engaged in discussions to optimize his medication for better blood pressure control. For hypercholesterolemia, the patient is prescribed Zetia and atorvastatin, aiming to maintain target LDL levels, supported by recent blood work showing optimal control. Additional concerns include BPH, with the patient under urological care and a noted elevation in PSA levels to 7.8 ng/mL. The patient's history of nephrolithiasis was noted, although not currently a presenting concern. Constipation is occasionally problematic, with lifestyle adjustments advised to mitigate potential exacerbation of hemorrhoids. Health Maintenance - Monitoring LDL levels and maintaining below 70 mg/dL with Zetia and atorvastatin. - PSA level of 7.8 ng/mL with urology follow-up. - Discussion on increasing dietary fiber and hydration to alleviate constipation. - Encouraged physical activity, even during colder months, to maintain cardiovascular health and prevent constipation. Social History - Engaged in limited physical activity. - Occasional constipation possibly linked to dietary habits. - History of dental concerns without recent antibiotic requirement. - Reports weight loss to 147 pounds and attempts to eat less. Review of Systems - Gastrointestinal: Reports constipation. Physical Exam Results - Labs: LDL at 71 mg/dL; PSA at 7.8 ng/mL. Plan Adjustments to the antihypertensive regimen include increasing amlodipine to 5 mg for better blood pressure management. Hypercholesterolemia treatment with Zetia and atorvastatin is continued, maintaining the LDL target. Comprehensive blood work is planned to monitor kidney function. Lifestyle changes are recommended to manage constipation, focusing on increased fiber and water intake. Continued urological surveillance for BPH is indicated by recent PSA results. Patient was informed and verbally consented to the use of an ambient scribe for clinic note documentation during this visit. Discussion Notes We discussed hypertension management and the importance of medication adherence, specifically the adjustment of amlodipine dosage. I emphasized the target LDL level below 70 mg/dL with the continuation of current lipid-modifying therapy. We addressed constipation management through increased dietary fiber and hydration. I encouraged staying physically active and explained the significance of maintaining regular activity levels even during winter months. Follow-up tests and blood work were scheduled, and we planned to monitor kidney function and PSA levels. The patient verbalized understanding and agreed to the management plan. Patient Instructions - Take amlodipine 5 mg daily, using two 2.5 mg tablets each morning. - Continue Zetia and atorvastatin as prescribed. - Schedule blood work for kidney function. - Maintain a diet rich in fiber and stay hydrated to alleviate constipation. - Engage in regular physical activity to support health and prevent constipation. - Follow up with urology for PSA monitoring. - Report any significant changes in symptoms or issues with medication. Orders: Orders Comprehensive Met. Panel Today E78.00 - Pure hypercholesterolemia, unspecified Complete Blood Count Auto Diff Today E78.00 - Pure hypercholesterolemia, unspecified Referrals Ophthalmology Referral H53.9 - Unspecified visual disturbance Medications: Changed From amlodipine 2.5 mg PO DAILY 90 tabs 2RF To amlodipine 5 mg PO DAILY 30 tabs 2RF Refilled hydrocortisone acetate (Anucort-HC) 25 mg UT BEDTIME 12 ea 0RF E78.00 - Pure hypercholesterolemia, unspecified blood pressure monitor (Blood Pressure Kit) As directed 1 ea 0RF I10 - Essential (primary) hypertension
== END 2025-01-28 14:13 | disposition home or self-care (01) ==
LOC: HO.HMCH 13:27
PROVIDERS: PCP Internal Medicine; Visit Provider Internal Medicine
DX: I25.10 Atherosclerotic heart disease of native coronary artery without angina pectoris (principal); E78.00 Pure hypercholesterolemia, unspecified; I10 Essential (primary) hypertension; R97.20 Elevated prostate specific antigen [PSA]; K64.9 Unspecified hemorrhoids; H53.9 Unspecified visual disturbance

== ENCOUNTER → 2025-01-28 13:26 | Outpatient (BNVA) | payer MEDICARE, SELFPAY | PROVIDERS: PCP Internal Medicine; Visit Provider Internal Medicine | DX: I25.10 Atherosclerotic heart disease of native coronary artery without angina pectoris (principal); I10 Essential (primary) hypertension; E78.00 Pure hypercholesterolemia, unspecified; R97.20 Elevated prostate specific antigen [PSA]; K64.9 Unspecified hemorrhoids; H53.9 Unspecified visual disturbance | CPT/HCPCS: 99212 ==

== ENCOUNTER 2025-05-03 07:45 | Outpatient (REF) | payer MEDICARE, SELFPAY ==
[2025-05-03 08:11] LABS: MANUAL DIFF FLAG NO
[2025-05-03 08:32] LABS: Basophils Absolute Auto 0.1 X10*3/uL (0.0-0.2); Eosinophils Absolute Auto 0.2 X10*3/uL (0.0-0.4); Eosinophils Percent Auto 5.2 % (0-4); Hematocrit 39.8 % (42.0-52.0); Hemoglobin 13.8 g/dl (14.0-18.0); Imm Gran Abs Auto 0.01 X10*3/uL (0.00-0.03); Imm Gran Pct Auto 0.2 % (0.0-0.4); Lymphocytes Absolute Auto 1.8 X10*3/uL (1.2-4.9); Mean Corpuscular HGB Conc 34.7 g/dl (31.0-36.0); Mean Corpuscular Hemoglobin 30.5 pg (27.0-33.0); Mean Corpuscular Volume 88.1 fL (80.0-98.0); Mean Platelet Volume 10.3 fL (9.4-12.4); Monocytes Absolute Auto 0.4 X10*3/uL (0.1-1.2); Neutrophils Percent Auto 44.6 % (45-73); Platelet Count 217 X10*3/uL (160-400); Red Blood Count 4.52 X10*6/uL (4.60-5.80); Red Cell Distribution Width 12.9 % (11.0-16.0); White Blood Count 4.4 X10*3/uL (4.8-10.8)
[2025-05-03 09:16] LABS: Alanine Aminotransferase 25 U/L (0-40); Albumin Level 4.2 g/dL (3.5-5.0); Alkaline Phosphatase 88 U/L (39-117); Anion Gap 11 (12-20); Aspartate Amino Transferase 27 U/L (5-37); Bilirubin Total 0.8 mg/dL (0.0-1.0); Blood Urea Nitrogen 24 mg/dL (9-16); Calcium 8.8 mg/dL (8.4-10.2); Carbon Dioxide 27 mmol/L (22-29); Chloride 109 mmol/L (96-108); Estimated Glomerular Filt Rate > 60; Glucose Random 87 mg/dL (60-115); Potassium 3.8 mmol/L (3.3-5.1); Sodium 143 mmol/L (135-145); Total Protein 6.5 g/dL (6.5-8.0)
== END 2025-05-03 07:46 | disposition home or self-care (01) ==
LOC: HO.LAB 07:45
PROVIDERS: PCP Internal Medicine; Visit Provider Internal Medicine
DX: E78.00 Pure hypercholesterolemia, unspecified (principal)
CPT/HCPCS: 36415; 80053; 85025

== ENCOUNTER 2025-05-06 07:58 | Outpatient (AMB) | payer MEDICARE, SELFPAY ==
--- NOTE | 2025-05-06 08:41 | MHC.OFFVIS ---
Intake Visit Reasons: follow up / PSA Intake Note: Patient is present for PSA F/U Urology Medication:FINASTERIDE Antibiotic Allergy:NONE Blood Thinner:ASPIRIN Hand Coper Required: No Allergies hydrochlorothiazide Allergy (Intermediate, Verified 05/06/25 08:42) frequency HPI Comments Details: Josesito is a pleasant male. He is a patient of Dr. Bhatia. Seen for the following urologic conditions - erectile dysfunction - BPH - elevated PSA Has not been seen since 12/09/2021 At that point was recommended follow-up SUSANNA enlarged prostate remains somewhat firm at right base On finasteride with 50% drop in PSA Continue finasteride Improvement in urinary symptoms on medication Elevated PSA with BPH Has some degree of urinary weakness of stream Takes pumpkin seeds and vinegar Previously been offered medications PSA - longstanding elevation, has been offered biopsy on multiple prior occasions 01/04 5.3, 05/08 7.7, 12/11 7.6 F 22%, 08/13 PSA 14 , 01/14 7.8 18% SUSANNA 2+ prostate question nodule left base Understands possible delay in diagnosis and risk prostate cancer but does not wish for biopsy. Erectile dysfunction Good response to Cialis [facility] Medical History (Updated 01/28/25 @ 14:05 by Addie Bhatia MD) Hemorrhoid Physical exam LFT elevation Constipation Elevated prostate specific antigen [PSA] High prostate specific antigen (PSA) Peripheral vascular disease Hypogonadism Coronary artery disease Hypercholesterolemia Erectile dysfunction Hypertension Fall Shoulder pain, right Surgical History Stented coronary artery Family History Father Hypertension Mother Hypertension Social History Housing: House Alcohol intake: current Alcohol intake frequency: holidays/special occasions only Comment: once glass once a month Patient Tobacco Use Status: Never used Tobacco Tobacco use type: Cigarette e-Cigarette/Vaping Use: Never Used Second Hand Smoke Exposure: No service: No Current occupational status: employed 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 Current occupational exposures/hazards: No Cognitive needs: No Hearing needs: No Vision needs: Yes Review of Systems Const Denies chills and Denies fever(s) Card Reports no additional complaints and Denies syncope Resp Denies cough GI Denies abdominal pain and Denies heartburn Reports as per HPI and Denies change in libido Neuro Denies syncope Psych Denies change in libido Endo Denies change in libido Physical Exam Const General: cooperative, healthy appearing, comfortable and no acute distress Orientation/consciousness: patient oriented x3 HEENT Face and sinus: Yes normal facial exam Mouth: moist mucous membranes Neck Neck: Yes normal visual inspection, Yes full ROM and Yes trachea midline Chest Chest palpation & inspection: normal inspection of the chest Resp Effort & Inspection: normal respiratory effort, able to speak in complete sentences and no respiratory distress GI Inspection: Yes normal to inspection Back/Spine/Pelvis Cervical Spine: normal cervical lordosis Thoracic/Lumbar Spine: thoracic and lumbar spine normal to inspection Skin General skin exam: no rashes or lesions noted Neuro General: patient oriented x3, gait normal, tone normal and moves all extremities Extrem General: Yes normal to inspection and Yes capillary refill normal Assessment & Plan Assessment & Plan (1) Erectile dysfunction: Code(s): N52.9 - Male erectile dysfunction, unspecified Category: Medical (2) BPH w urinary obs/LUTS: Code(s): N40.1 - Benign prostatic hyperplasia with lower urinary tract symptoms; N13.8 - Other obstructive and reflux uropathy Category: Medical Plan Six-month follow-up PSA Orders: Orders PSA,Total (Free>4and<10) 6 Months N13.8 - Other obstructive and reflux uropathy, N40.1 - Benign prostatic hyperplasia with lower urinary tract symptoms Medications: Refilled finasteride 5 mg PO DAILY 90 days 90 tabs 1RF N13.8 - Other obstructive and reflux uropathy, N40.1 - Benign prostatic hyperplasia with lower urinary tract symptoms, R33.9 - Retention of urine, unspecified Patient Instructions: This note is constructed using voice recognition software. While every effort has been made to ensure accuracy financial specialist errors may have been included. Imaging studies, laboratory and physical exam results were discussed and reviewed in detail. No major barriers to patient understanding were identified. An opportunity to ask questions regarding the treatment plan was provided. All questions were answered. The patient expressed understanding and agreement with the above treatment plan. The patient is aware they should contact our office by phone for worsening of their current condition or the appearance of new urologic symptoms. Compliance is encouraged with any medications and followup testing that is ordered. It is a privilege to participate in the urologic care of your patient. If you have any questions or concerns regarding treatment for the above conditions, or other urologic issues, please do not hesitate to contact me. The office telephone contact is [phone]. Sincerely, Dr hSiv Garcia MD, [facility] - Urology Compassionate Specialist Care for the Genitourinary System Coding Level of Care Code Est Pt Level 3 (39716) Global (91025) Diagnoses Erectile dysfunction N52.9 BPH w urinary obs/LUTS N40.1; N13.8
== END 2025-05-06 09:15 | disposition home or self-care (01) ==
LOC: HO.HUSH 07:59
PROVIDERS: PCP Internal Medicine; Visit Provider Urology
DX: N52.9 Male erectile dysfunction, unspecified (principal); N40.1 Benign prostatic hyperplasia with lower urinary tract symptoms; N13.8 Other obstructive and reflux uropathy
CPT/HCPCS: 99213

== ENCOUNTER → 2025-05-06 07:58 | Outpatient (BNVA) | payer MEDICARE, SELFPAY | PROVIDERS: PCP Internal Medicine; Visit Provider Urology | DX: N40.1 Benign prostatic hyperplasia with lower urinary tract symptoms (principal); N13.8 Other obstructive and reflux uropathy; N52.9 Male erectile dysfunction, unspecified | CPT/HCPCS: 99212 ==

== ENCOUNTER 2025-05-16 12:44 | Outpatient (AMB) | payer MEDICARE, SELFPAY ==
[2025-05-16 12:49] VITALS: BP 158/82; PULSE 79; O2SAT 97; BMI 22.3
--- NOTE | 2025-05-16 12:49 | MHC.PC.OV ---
Vital Signs 05/16/25 12:49 Height 5 ft 8 in Weight 147 lb BMI 22.3 BP 158/82 H Blood Pressure Location Lt brachial Position Sitting Pulse 79 Pulse Source Pulse Oximeter Pulse Oximetry (%) 97 Oxygen Delivery Method Room Air Intake Visit Reasons: Ankle Swelling Allergies hydrochlorothiazide Allergy (Intermediate, Verified 05/16/25 12:49) frequency Medication List - Last Reconciled 05/16/25 by Addie Bhatia MD amlodipine 5 mg PO DAILY aspirin (Adult Low Dose Aspirin) 81 mg PO DAILY atorvastatin 80 mg PO DAILY blood pressure monitor (Blood Pressure Kit) As directed clotrimazole 1% 1 appl topical BID 4 weeks ezetimibe 10 mg PO DAILY finasteride 5 mg PO DAILY 90 days hydrocortisone acetate (Anucort-HC) 25 mg SC BEDTIME metoprolol succinate ER 50 mg PO DAILY Tobacco use date assessed: 01/28/25 Fall risk assessment: No Falls in past year Last assessed Fall Risk: 05/16/25 Dental Screening Dental Screen Date: 01/28/25 [facility] Medical History (Updated 01/28/25 @ 14:05 by Addie Bhatia MD) Hemorrhoid Physical exam LFT elevation Constipation Elevated prostate specific antigen [PSA] High prostate specific antigen (PSA) Peripheral vascular disease Hypogonadism Coronary artery disease Hypercholesterolemia Erectile dysfunction Hypertension Fall Shoulder pain, right Surgical History Stented coronary artery Family History Father Hypertension Mother Hypertension Social History Housing: House Alcohol intake: current Alcohol intake frequency: holidays/special occasions only Comment: once glass once a month Patient Tobacco Use Status: Never used Tobacco Tobacco use type: Cigarette e-Cigarette/Vaping Use: Never Used Second Hand Smoke Exposure: No service: No Current occupational status: employed 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 1. Little interest or pleasure in doing things: not at all 2. Feeling down, depressed, or hopeless: not at all 3. Trouble falling or staying asleep, or sleeping too much: not at all 4. Feeling tired or having little energy: not at all 5. Poor appetite or overeating: not at all 6. Feeling bad about yourself - or that you are a failure or have let yourself or your family down: not at all 7. Trouble concentrating on things, such as reading the newspaper or watching television: not at all 8. Moving or speaking so slowly that other people could have noticed. Or the opposite - being so fidgety or restless that you have been moving around a lot more than usual: not at all 9. Thoughts that you would be better off or of hurting yourself in some way: not at all Total score: 0 Depression Screening Interpretation: Negative Depression Screening Done: Yes Source: Developed by Drs. Bret Arzola, Paris Monet, Jon García and colleagues, with an educational neo from [employer]. Thrive Questionnaire Date Thrive assessed: 11/26/24 I am a: Patient What is your living situation today?: I have a steady place to live Within the past 12 months, did the food you bought not last and you didn't have the money to get more?: Never true Within the past 12 months, did you worry whether your food would run out before you got money to buy more?: Never true Do you have trouble paying for medicines?: No Do you have trouble getting transportation to medical appointments?: No Do you have trouble paying your heating and electricity bill?: No Do you have trouble taking care of your child, family member or friend?: No Do you have trouble with day-to-day activities such as bathing, preparing meals, shopping, managing finances, etc.?: No Are you currently unemployed and looking for a job?: Yes Are you interested in more education?: No Please select the resources that you would like help with: None Currently or been in a relationship where the following occur: No concerns reported THRIVE Score: 0 AUDIT C Alcohol Use Questionnaire (AUDIT-C) 1. How often do you have a drink containing alcohol?: Never 3. How often do you have six or more drinks on one occasion?: Never Total Score: 0 FLACO-7 AMB Questionnaire FLACO-7 Date FLACO - 7 assessed: 01/28/25 Feeling nervous, anxious, or on edge: 0 = Not at all Not being able to stop or control worryin = Not at all Worrying too much about different things: 0 = Not at all Trouble relaxin = Not at all Being so restless that it is hard to sit still: 0 = Not at all Becoming easily annoyed or irritable: 0 = Not at all Feeling afraid as if something awful might happen: 0 = Not at all Total FLACO-7 score (0-4 normal; 5-9 mild; 10-14 moderate; 15-21 severe): 0 Source: Developed by Drs. Bret Arzola, Paris Monet, Jon García and colleagues, with an educational neo from [employer]. Physical exam (Primary Care) Vital Signs: Last Vital Signs Pulse 79 05/16/25 12:49 BP 158/82 H 05/16/25 12:49 Pulse Ox 97 05/16/25 12:49 Oxygen Delivery Method Room Air 05/16/25 12:49 BMI result Body Mass Index 22.3 Tobacco/Smoking Status: Tobacco use Status Tobacco use date assessed 01/28/25 05/16/25 12:50 Patient Tobacco Use Status Never used Tobacco 05/16/25 12:50 Tobacco use type Cigarette 05/16/25 12:50 e-Cigarette/Vaping Use Never Used 05/16/25 12:50 PHQ-9: PHQ-9 Score PHQ-9: Total score 0 05/16/25 13:18 Depression Screening Interpretation: Negative Thrive Assessment: Date of Thrive Assessment Date Thrive assessed 11/26/24 05/16/25 12:50 Currently or been in a relationship where the following occur: No concerns reported Const General: alert; No acute distress Eyes Conjunctivae: conjunctivae normal Resp Auscultation: clear to auscultation bilaterally Cardio Rate: regular rate Rhythm: regular rhythm GI Inspection: Yes normal to inspection Extrem General: Yes normal to inspection and No edema Coding Level of Care Code Est Pt Level 4 (83109) Complex EM visit Add On G2211 Diagnoses Coronary artery disease involving [place] coronary artery of [place] heart without angina pectoris I25.10 Coronary Disease-Associated Artery/Lesion type: [place] artery [place] vs. transplanted heart: [place] heart Associated angina: without angina Essential hypertension I10 Hypertension type: essential hypertension Elevated prostate specific antigen [PSA] R97.20 Anemia D64.9 Assessment & Plan Assessment & Plan (1) Coronary artery disease: Comment: [facility] CAD LAD [facility] Medical Code(s): I25.10 - Atherosclerotic heart disease of [place] coronary artery without angina pectoris Category: Medical Qualifiers: Coronary Disease-Associated Artery/Lesion type: [place] artery [place] vs. transplanted heart: [place] heart Associated angina: without angina Qualified Code(s): I25.10 - Atherosclerotic heart disease of [place] coronary artery without angina pectoris Plan: Control the cholesterol, weight, blood pressure, continue with aspirin 81 mg once a day (2) Hypertension: Code(s): I10 - Essential (primary) hypertension Category: Medical Qualifiers: Hypertension type: essential hypertension Qualified Code(s): I10 - Essential (primary) hypertension Plan: Continue with blood pressure medication. Decrease salt intake and exercise patient presently on amlodipine 5 mg once a day and metoprolol 50 mg once a day. Concern about leg swelling discussed that amlodipine can cause this. (3) Elevated prostate specific antigen [PSA]: Code(s): R97.20 - Elevated prostate specific antigen [PSA] Category: Medical Plan: Patient follows up with urology and continued follow-up with the numbers (4) Anemia: Code(s): D64.9 - Anemia, unspecified Category: Medical Plan: Continue to monitor Plan History of Present Illness The patient is an 80-year-old male presenting for a follow-up visit. He has a history of hypertension, hypercholesterolemia, coronary artery disease, and nephrolithiasis. The patient was last seen in January 2025 and has been under urological care for elevated PSA levels, which were noted to be 14.28 and improved to 7.8 in December. He is currently on finasteride for prostate management. Recent blood work from May 03 showed mild anemia with hemoglobin at 13.8 and mild leukopenia at 4.4. Platelet count was within normal limits, and renal function was stable. The patient reports leg swelling, which was discussed as a potential side effect of amlodipine. He had discontinued lisinopril due to concerns about swelling, but it was noted that lisinopril is not typically associated with this side effect. Health Maintenance - Continue aspirin 81 mg daily for cardiovascular protection - Blood pressure management with amlodipine and metoprolol, with adjustments discussed - Monitoring of PSA levels with urology follow-up - Dietary recommendations for anemia management, including iron-rich foods like oatmeal and beets - Hydration advice to support renal function - Vaccination status reviewed, with recommendations for tetanus booster Social History - Dietary habits include consumption of oatmeal, beets, onions, and tomatoes. - Hydration habits include drinking a glass of water daily, with recommendations to increase intake. Review of Systems - Cardiovascular: Reports leg swelling. Denies chest pain or palpitations. - Hematologic: Reports mild anemia. Denies bleeding or bruising. Physical Exam - Cardiovascular: Blood pressure 160/80 mmHg, noted to be elevated. Results - Labs: Hemoglobin 13.8 g/dL indicating mild anemia, leukopenia at 4.4 x10^9/L, normal platelet count, stable renal function. - Labs: PSA elevated at 14.28 ng/mL, improved to 7.8 ng/mL in December. Plan The patient's blood pressure management plan includes discontinuing amlodipine due to its association with leg swelling and resuming lisinopril to better control hypertension. Continued monitoring of PSA levels is advised, with follow-up appointments scheduled with urology to assess the effectiveness of finasteride therapy. For anemia, dietary modifications are recommended, including increased intake of iron-rich foods such as oatmeal and beets. Hydration is emphasized to support renal function, with advice to increase water intake throughout the day. Vaccination status was reviewed, and a tetanus booster is recommended given the last dose was in 2010. Patient was informed and verbally consented to the use of an ambient scribe for clinic note documentation during this visit. Discussion Notes During the visit, we discussed the need to adjust the patient's antihypertensive regimen due to side effects of amlodipine, opting to resume lisinopril instead. We also reviewed the patient's PSA levels and the ongoing management with finasteride, emphasizing the importance of follow-up with urology. Dietary recommendations were provided to address mild anemia, and the importance of adequate hydration was highlighted to support renal function. We reviewed the patient's vaccination status, recommending a tetanus booster given the last dose was in 2010. Patient Instructions - Discontinue amlodipine and resume lisinopril as discussed. - Continue taking finasteride and follow up with urology as scheduled. - Increase intake of iron-rich foods like oatmeal and beets to address anemia. - Drink more water throughout the day to support kidney health. - Schedule a tetanus booster as the last dose was in 2010. Orders: Orders Complete Blood Count Auto Diff 3 Months D64.9 - Anemia, unspecified Comprehensive Met. Panel 3 Months D64.9 - Anemia, unspecified Free T4 (Free Thyroxine) 3 Months D64.9 - Anemia, unspecified Ferritin 3 Months D64.9 - Anemia, unspecified Lipid Panel 3 Months D64.9 - Anemia, unspecified, E78.00 - Pure hypercholesterolemia, unspecified Thyroid Stimulating Hormone 3 Months D64.9 - Anemia, unspecified Vitamin B12 and Folate 3 Months D64.9 - Anemia, unspecified Hemoglobin A1c 3 Months D64.9 - Anemia, unspecified IRON PROFILE 3 Months D64.9 - Anemia, unspecified Reticulocyte Count 3 Months D64.9 - Anemia, unspecified UA CC w/rflx Micro + Cult 3 Months D64.9 - Anemia, unspecified, R30.0 - Dysuria B Type Natriuretic Peptide Today I10 - Essential (primary) hypertension Vitamin D 25-OH Total 3 Months D64.9 - Anemia, unspecified Medications: Refilled lisinopril 20 mg PO DAILY 30 tabs 2RF Discontinued amlodipine Discontinued Reason: Doctor's Order 5 mg PO DAILY 30 tabs 2RF
== END 2025-05-16 14:14 | disposition home or self-care (01) ==
LOC: HO.HMCH 12:44
PROVIDERS: PCP Internal Medicine; Visit Provider Internal Medicine
DX: I25.10 Atherosclerotic heart disease of native coronary artery without angina pectoris (principal); I10 Essential (primary) hypertension; R97.20 Elevated prostate specific antigen [PSA]; D64.9 Anemia, unspecified

== ENCOUNTER → 2025-05-16 12:44 | Outpatient (BNVA) | payer MEDICARE, SELFPAY | PROVIDERS: PCP Internal Medicine; Visit Provider Internal Medicine | DX: I25.10 Atherosclerotic heart disease of native coronary artery without angina pectoris (principal); I10 Essential (primary) hypertension; R97.20 Elevated prostate specific antigen [PSA]; D64.9 Anemia, unspecified | CPT/HCPCS: 99212 ==

== ENCOUNTER 2025-09-13 08:02 | Outpatient (REF) | payer MEDICARE, SELFPAY ==
[2025-09-13 08:17] LABS: MANUAL DIFF FLAG NO
[2025-09-13 08:53] LABS: Hematocrit 43.3 % (42.0-52.0); Hemoglobin 14.4 g/dl (14.0-18.0); Imm Gran Abs Auto 0.01 X10*3/uL (0.00-0.03); Imm Gran Pct Auto 0.2 % (0.0-0.4); Lymphocytes Absolute Auto 2.3 X10*3/uL (1.2-4.9); Mean Corpuscular HGB Conc 33.3 g/dl (31.0-36.0); Mean Corpuscular Hemoglobin 29.3 pg (27.0-33.0); Mean Corpuscular Volume 88.2 fL (80.0-98.0); NRBC Abs Auto 0.000 X10*3/uL (0.0-0.012); NRBC Pct Auto 0.0 /100WBC (0.0-0.2); Platelet Count 215 X10*3/uL (160-400); Red Blood Count 4.91 X10*6/uL (4.60-5.80); Reticulocytes Absolute 0.067 X10*6/uL (0.026-0.095); White Blood Count 5.7 X10*3/uL (4.8-10.8)
[2025-09-13 09:07] LABS: Appearance Urine Clear; Glucose Urine UA Negative (Negative); PH 5.5 (5.0-9.0); Specific Gravity - Urine 1.025 (1.005-1.025)
[2025-09-13 09:50] LABS: Alanine Aminotransferase 20 U/L (0-40); Albumin Level 4.4 g/dL (3.5-5.0); Alkaline Phosphatase 93 U/L (39-117); Anion Gap 12 (12-20); Aspartate Amino Transferase 26 U/L (5-37); Blood Urea Nitrogen 22 mg/dL (9-16); Calcium 9.0 mg/dL (8.4-10.2); Carbon Dioxide 28 mmol/L (22-29); Chloride 108 mmol/L (96-108); Cholesterol 127 mg/dL (<200); Estimated Glomerular Filt Rate > 60; HDL Cholesterol 46 mg/dL (>40); Iron 82 mcg/dL (45-160); Percent Iron Saturation 32 % (15-50); Potassium 3.7 mmol/L (3.3-5.1); Sodium 144 mmol/L (135-145); Total Iron Binding Capacity 258 mcg/dL (228-428); Total Protein 6.8 g/dL (6.5-8.0); Triglycerides 70 mg/dL (<150); Unsaturated Iron Binding 176 ug/dL
[2025-09-13 10:10] LABS: Ferritin 104 ng/mL (20-250); Free T4 (Free Thyroxine) 1.01 ng/dL (0.71-1.85); Thyroid Stimulating Hormone 2.93 uIU/mL (0.32-4.0)
[2025-09-13 10:15] LABS: Folate 11.9 ng/mL (> or = 4.0); Vitamin B12 550 pg/mL (200-900)
== END 2025-09-13 08:03 | disposition home or self-care (01) ==
LOC: HO.LAB 08:02
PROVIDERS: PCP Internal Medicine; Visit Provider Internal Medicine
DX: R30.0 Dysuria (principal); D64.9 Anemia, unspecified; E78.00 Pure hypercholesterolemia, unspecified; Z13.1 Encounter for screening for diabetes mellitus; Z13.21 Encounter for screening for nutritional disorder
CPT/HCPCS: 36415; 80053; 80061; 81003; 82306; 82607; 82728; 82746; 83036; 83540; 84439; 84443; 85025; 85045

== ENCOUNTER 2025-09-16 09:40 | Outpatient (AMB) | payer MEDICARE, SELFPAY ==
--- NOTE | 2025-09-16 10:05 | MHC.PC.OV ---
Vital Signs 09/16/25 10:06 Height 5 ft 8 in Weight 143 lb 6 oz BMI 21.8 BP 140/92 H Blood Pressure Location Lt brachial Position Sitting Pulse 60 Pulse Source Pulse Oximeter Temp 97.1 F Temp Source Temporal Artery Scan Pulse Oximetry (%) 97 Oxygen Delivery Method Room Air Intake Visit Reasons: annual exam - see comments Allergies hydrochlorothiazide Allergy (Intermediate, Verified 09/16/25 10:28) frequency Medication List - Last Reconciled 09/16/25 by Addie Bhatia MD aspirin (Adult Low Dose Aspirin) 81 mg PO DAILY atorvastatin 80 mg PO DAILY blood pressure monitor (Blood Pressure Kit) As directed clotrimazole 1% 1 appl topical BID 4 weeks ezetimibe 10 mg PO DAILY finasteride 5 mg PO DAILY 90 days hydrocortisone acetate (Anucort-HC) 25 mg [place] BEDTIME lisinopril 20 mg PO DAILY metoprolol succinate ER 50 mg PO DAILY Tobacco use date assessed: 09/16/25 Fall risk assessment: No Falls in past year Last assessed Fall Risk: 09/16/25 Dental Screening Dental Screen Date: 09/16/25 Did you have a dental visit in the last 12 months?: No Did you have a dental problem in the last 6 months where you did not have access to dental care?: No Was dental information given to patient?: Patient has dentist [facility] Medical History Hemorrhoid Physical exam LFT elevation Constipation Elevated prostate specific antigen [PSA] High prostate specific antigen (PSA) Peripheral vascular disease Hypogonadism Coronary artery disease Hypercholesterolemia Erectile dysfunction Hypertension Fall Shoulder pain, right Surgical History Stented coronary artery Family History Father Hypertension Mother Hypertension Social History (Updated 09/16/25 @ 11:02 by Addie Bhatia MD) Housing: House Alcohol intake: current Alcohol intake frequency: holidays/special occasions only Comment: once glass once a month, stopped 08/2025 Patient Tobacco Use Status: Never used Tobacco Tobacco use type: Cigarette e-Cigarette/Vaping Use: Never Used Second Hand Smoke Exposure: No service: No Current occupational status: employed Current occupation: [employer] - [employer] Right handed Current occupational exposures/hazards: No Cognitive needs: No Hearing needs: No Vision needs: Yes Questionnaire PHQ-9 Over the last 2 weeks, how often have you been bothered by any of the following problems? 1. Little interest or pleasure in doing things: not at all 2. Feeling down, depressed, or hopeless: not at all 3. Trouble falling or staying asleep, or sleeping too much: not at all 4. Feeling tired or having little energy: not at all 5. Poor appetite or overeating: not at all 6. Feeling bad about yourself - or that you are a failure or have let yourself or your family down: not at all 7. Trouble concentrating on things, such as reading the newspaper or watching television: not at all 8. Moving or speaking so slowly that other people could have noticed. Or the opposite - being so fidgety or restless that you have been moving around a lot more than usual: not at all 9. Thoughts that you would be better off or of hurting yourself in some way: not at all Total score: 0 Depression Screening Interpretation: Negative Depression Screening Done: Yes Source: Developed by Drs. Bret Arzola, Paris Monet, Jon García and colleagues, with an educational neo from [employer]. Thrive Questionnaire Date Thrive assessed: 05/16/25 I am a: Patient What is your living situation today?: I have a steady place to live Within the past 12 months, did the food you bought not last and you didn't have the money to get more?: Never true Within the past 12 months, did you worry whether your food would run out before you got money to buy more?: Never true Do you have trouble paying for medicines?: No Do you have trouble getting transportation to medical appointments?: No Do you have trouble paying your heating and electricity bill?: No Do you have trouble taking care of your child, family member or friend?: No Do you have trouble with day-to-day activities such as bathing, preparing meals, shopping, managing finances, etc.?: No Are you currently unemployed and looking for a job?: Yes Are you interested in more education?: No Please select the resources that you would like help with: None Currently or been in a relationship where the following occur: No concerns reported THRIVE Score: 0 AUDIT C Alcohol Use Questionnaire (AUDIT-C) 1. How often do you have a drink containing alcohol?: Never 3. How often do you have six or more drinks on one occasion?: Never Total Score: 0 FLACO-7 AMB Questionnaire FLACO-7 Date FLACO - 7 assessed: 01/28/25 Feeling nervous, anxious, or on edge: 0 = Not at all Not being able to stop or control worryin = Not at all Worrying too much about different things: 0 = Not at all Trouble relaxin = Not at all Being so restless that it is hard to sit still: 0 = Not at all Becoming easily annoyed or irritable: 0 = Not at all Feeling afraid as if something awful might happen: 0 = Not at all Total FLACO-7 score (0-4 normal; 5-9 mild; 10-14 moderate; 15-21 severe): 0 Source: Developed by Drs. Bret Arzola, Paris Monet, Jon García and colleagues, with an educational neo from [employer]. Review of Systems Const Denies poor appetite and Denies weakness Eyes Denies no additional complaints ENT Reports Normal hearing present, Denies dizziness, Denies nasal congestion, Denies tinnitus and Denies sore throat Card Denies chest pain, Denies syncope, Denies rapid heart rate and Denies dyspnea Resp Denies cough and Denies dyspnea GI Denies change in stool character, Reports constipation, Denies diarrhea, Denies nausea and Denies vomiting Denies dysuria and Denies urinary frequency Neuro Reports Normal hearing present, Denies confusion, Denies dizziness, Denies syncope and Denies weakness Psych Denies confusion Physical exam (Primary Care) Vital Signs: Last Vital Signs Temp 97.1 F 09/16/25 10:06 Pulse 60 09/16/25 10:06 BP 140/92 H 09/16/25 10:06 Pulse Ox 97 09/16/25 10:06 Oxygen Delivery Method Room Air 09/16/25 10:06 BMI result Body Mass Index 21.8 Tobacco/Smoking Status: Tobacco use Status Tobacco use date assessed 09/16/25 09/16/25 10:07 Patient Tobacco Use Status Never used Tobacco 09/16/25 11:02 Tobacco use type Cigarette 09/16/25 11:02 e-Cigarette/Vaping Use Never Used 09/16/25 11:02 PHQ-9: PHQ-9 Score PHQ-9: Total score 0 09/16/25 10:56 Depression Screening Interpretation: Negative Thrive Assessment: Date of Thrive Assessment Date Thrive assessed 05/16/25 09/16/25 10:06 Currently or been in a relationship where the following occur: No concerns reported Const General: No confusion Orientation/consciousness: No confusion HENMT Head: Yes normocephalic Ears: external ears normal and TM's normal bilaterally Face and sinus: Yes normal facial exam Mouth: moist mucous membranes Throat: Yes tonsils normal Eyes Conjunctivae: conjunctivae normal Pupils: Equal, round and reactive pupils present and Pupil accommodation reflex normal Direct Ophthalmoscopy: normal light reflex Neck Neck: No lymphadenopathy Thyroid: Thyroid normal Chest Chest palpation & inspection: normal inspection of the chest Resp Effort & Inspection: normal respiratory effort and no audible wheezes Auscultation: clear to auscultation bilaterally, no crackles, no wheezes and lung sounds not diminished Cardio Rate: regular rate Rhythm: regular rhythm Peripheral pulses: radial pulses present and dorsalis pedis present GI Other: declined Palpation (GI): no masses Auscultation: normal bowel sounds and normoactive bowel sounds Rectal Exam - Male: Yes deferred Other: declined Skin General skin exam: no rashes or lesions noted Rashes: no rashes Neuro General: No confusion Cranial nerves: Yes Equal, round and reactive pupils present and Yes Normal hearing present Cognition (Neuro): normal cognition Gait exam (Neuro): Normal gait present Motor exam (neuro): 5/5 motor strength present throughout Deep tendon reflexes (DTR's): Right brachioradialis reflex intensity grade: 2+, Left brachioradialis reflex intensity grade: 2+, Right patellar reflex intensity grade: 2+ and Left patellar reflex intensity grade: 2+ Extrem General: No edema Office Procedures Flu Questionnaire Does the patient have a severe egg allergy?: No Does the patient have severe life threatening allergies?: No Does the patient have a fever or illness today?: No Has the patient ever had Guillain-[place] Syndrome?: No Has the patient ever had any past reaction to a flu shot?: No Immunizations Fluarix [id number] (PF) 45 mcg (15 mcg x 3)/0.5 mL IM syringe Performing Provider: Addie Bhatia MD [facility] Administered by: Dali Broderick CMA on 09/16/25 10:35 Dose Route Admin Location Dispensed Lot Number Expiration Date NDC M1 Armor Crewman 0.5 mL IM Left Deltoid 0.5 mL [id number] 05/19/26 [id number] GLAXNXVISION VIS Given Date VIS Provided VIS Publication Date 09/16/25 Single Vaccine 24 Eligibility Eligibility Date Funding Source Not [facility] Eligible 09/16/25 Private Coding Level of Care Code Est Pt Prev Care >65y(57330) Diagnoses Annual physical exam Z00.00 Impaired glucose tolerance R73.02 Essential hypertension I10 Hypertension type: essential hypertension Hypercholesterolemia E78.00 Coronary artery disease involving [place] coronary artery of [place] heart without angina pectoris I25.10 Associated angina: without angina Coronary Disease-Associated Artery/Lesion type: [place] artery [place] vs. transplanted heart: [place] heart BPH w urinary obs/LUTS N40.1; N13.8 Assessment & Plan Assessment & Plan (1) Annual physical exam: Code(s): Z00.00 - Encounter for general adult medical examination without abnormal findings Category: Medical Plan: Patient is advised to eat healthy, keep well hydrated, keep active and have adequate sleep. (2) Impaired glucose tolerance: Code(s): R73.02 - Impaired glucose tolerance (oral) Category: Medical Plan: Decrease the amount of carbohydrate intake, pasta, bread, rice and potatoes are all sugar and that is aside from all the sweet stuff, remember that fruits are good but they are Sweet also. (3) Hypertension: Code(s): I10 - Essential (primary) hypertension Category: Medical Qualifiers: Hypertension type: essential hypertension Qualified Code(s): I10 - Essential (primary) hypertension Plan: Continue with blood pressure medication. Decrease salt intake and exercise on lisinopril 20 mg once a day metoprolol 50 mg once a day (4) Hypercholesterolemia: Code(s): E78.00 - Pure hypercholesterolemia, unspecified Category: Medical Plan: Avoid fried foods, chicken skin, eggs, butter margarine, pastries and meat. Be it pork or beef they have a lot of cholesterol LDL goal of less than 70 and triglyceride of less than 150 on Zetia at 10 mg once a day and atorvastatin 80 mg once a day (5) Coronary artery disease: Comment: MARSHALL CAD LAD 02/14/2018 Dr. Love [facility] Medical Code(s): I25.10 - Atherosclerotic heart disease of [place] coronary artery without angina pectoris Category: Medical Qualifiers: Associated angina: without angina Coronary Disease-Associated Artery/Lesion type: [place] artery [place] vs. transplanted heart: [place] heart Qualified Code(s): I25.10 - Atherosclerotic heart disease of [place] coronary artery without angina pectoris Plan: Control the cholesterol, weight, blood pressure, continue with aspirin 81 mg once a day (6) BPH w urinary obs/LUTS: Code(s): N40.1 - Benign prostatic hyperplasia with lower urinary tract symptoms; N13.8 - Other obstructive and reflux uropathy Category: Medical Plan: On finasteride Plan History of Present Illness The patient is an 80-year-old male presenting for a physical exam. He has a past medical history of hypertension, hypercholesterolemia, coronary artery disease, benign prostatic hyperplasia (BPH), right nephrolithiasis, and impaired glucose tolerance. His last colonoscopy was in 2009. Recent blood work from September 13 was notable for a hemoglobin A1c of 6.0. Other labs, including a complete blood count, electrolytes, renal function (creatinine 1.16), iron, liver function, vitamin B12, folic acid, and thyroid studies, were all normal. His LDL cholesterol was 67. His current medications include lisinopril 20 mg, metoprolol 50 mg, atorvastatin 80 mg, Zetia 10 mg, aspirin 81 mg, and finasteride. He takes no supplements and reports no new diagnoses or surgeries since his last visit. He has a known allergy to hydrochlorothiazide, which caused increased urination. For his BPH, the patient notes that finasteride has not improved his nocturia, as he continues to wake up 3-4 times per night to urinate. He has a follow-up appointment with his urologist in October to discuss this issue. Health Maintenance A referral to podiatry will be placed. The patient's Vitamin D level is slightly low; supplementation should be considered. He was counseled on using lotion for dry skin and the importance of exercise. The shingles vaccine was discussed and recommended. Social History - Alcohol Use: The patient reports he does not currently drink alcohol. - Tobacco Use: The patient denies ever smoking. - Diet: The patient was advised to be careful with carbohydrates and sweets. - Hydration: He reports drinking an inadequate amount of water, approximately 4-6 ounces once or twice daily. - Exercise: The patient was advised to exercise. Review of Systems - Constitutional: Denies fever. - Cardiovascular: Denies chest pain, heaviness, or waking up short of breath. - Gastrointestinal: Denies nausea, vomiting, heartburn, or problems with swallowing. Reports normal bowel movements, denying constipation or diarrhea. - Genitourinary: Reports nocturia, waking 3-4 times per night to urinate. - Neurological: Denies syncope or dizziness. - ENT: Reports hearing is okay. - Skin: Reports dry skin in the winter. Physical Exam General: Cooperative, healthy appearing, comfortable, no acute distress and well developed Orientation: Patient oriented x3 Limitations: No limitations Head: Normal to inspection Ears: Hearing grossly normal bilaterally Nose: Normal external nose present Face and sinus: Normal facial exam Eyes: Appearance normal, both eyes and all related structures Neck: Normal visual inspection and Yes full ROM Respiratory: Normal respiratory effort and able to speak in complete sentences. Clear to auscultation bilaterally Cardiovascular: Regular rate and rhythm. Normal S1 and S2 GI: Normal to inspection. Soft to palpation and nontender Skin: No rashes or lesions noted Neuro: Patient oriented x3 Extremities: Normal to inspection Results - Labs (September 13): - CBC: Normal, no anemia. - BMP: Electrolytes normal. Creatinine 1.16. - Hemoglobin A1c: 6.0%. - LFTs: Normal. - Lipid panel: LDL 67 mg/dL. - Other: Iron, Vitamin B12, folic acid, and thyroid levels were normal. Vitamin D was low. - Urinalysis: Normal. Plan Patient was informed and verbally consented to the use of an ambient scribe for clinic note documentation during this visit. 1. Hypertension The patient's blood pressure is elevated on examination despite treatment with lisinopril 20 mg and metoprolol 50 mg. The plan is to increase the lisinopril dose to 30 mg once daily. Kidney function will be monitored. The patient was advised to obtain a home blood pressure monitor and increase daily water intake. 2. Hypercholesterolemia The patient's LDL cholesterol is 67, which is at the goal of less than 70. He will continue his current regimen of atorvastatin 80 mg and Zetia 10 mg once daily. 3. Prediabetes The patient's hemoglobin A1c is 6.0%, which is in the prediabetic range. He was counseled to be careful with his intake of carbohydrates and sweets. A repeat hemoglobin A1c test will be performed in three months. 4. Coronary Artery Disease For secondary prevention, the patient will continue taking aspirin 81 mg once daily. The patient was educated that aspirin helps prevent heart attacks, and that applying firm pressure for five minutes after a blood draw can prevent bruising. 5. Benign Prostatic Hyperplasia The patient reports persistent nocturia (3-4 times per night) despite treatment with finasteride. He will continue finasteride and has an appointment to see his urologist in October to discuss further management. Discussion Notes I reviewed the patient's recent lab results with him, noting his cholesterol is well-controlled, but his hemoglobin A1c of 6.0% indicates prediabetes. I counseled him to reduce his sugar and carbohydrate intake, and we will retest his A1c in three months. I informed him that his blood pressure is high and that I am increasing his lisinopril dose from 20 mg to 30 mg to better control it, and I will be monitoring his kidney function. I also advised him to drink more water, about 6-8 glasses a day, which is important for kidney health. We discussed the large bruise on his arm from a recent blood draw, and I explained that this can happen because he is on aspirin and instructed him to apply firm pressure for five minutes after future blood draws to prevent this. We discussed his nocturia, which has not improved with finasteride, and I noted that he has an upcoming appointment with his urologist to address this. I informed him that I will be placing a referral for him to see a skills instructor. Finally, we discussed the shingles vaccine, and I recommended he consider getting it. Patient Instructions - Your blood pressure is high, so I am increasing your lisinopril dose from 20 mg to 30 mg per day. It is important to get your blood pressure down. - Continue all your other current medications as prescribed. - Be careful with your intake of sugar and sweets, as your blood sugar test (hemoglobin A1c) was a little high. We will recheck this test in three months. - Drink 6 to 8 glasses of water every day. This is important for your kidney health. To help with nighttime urination, stop drinking water two hours before you go to sleep. - Continue with your plan to see the urologist in October to discuss waking up at night to urinate. - After future blood draws, press firmly on the site for a full five minutes to prevent bruising. - We are placing a referral for you to see a foot doctor (skills instructor). - Use lotion on your skin to prevent it from getting dry, especially in the winter. - You should try to exercise more. - We discussed the shingles vaccine. If you would like to get it, it is available at the pharmacy. Orders: Orders Basic Metabolic Panel 3 Months I10 - Essential (primary) hypertension Influenza [id number] Immunization Today Z23 - Encounter for immunization Hemoglobin A1c 3 Months I10 - Essential (primary) hypertension Referrals Podiatry Referral L60.3 - Nail dystrophy Medications: Changed From lisinopril 20 mg PO DAILY 30 tabs 2RF To lisinopril 30 mg PO DAILY 30 tabs 2RF
[2025-09-16 10:06] VITALS: BP 140/92; PULSE 60; TEMP 36.2; O2SAT 97; BMI 21.8
== END 2025-09-16 11:21 | disposition home or self-care (01) ==
LOC: HO.HMCH 09:41
PROVIDERS: PCP Internal Medicine; Visit Provider Internal Medicine
DX: Z00.00 Encounter for general adult medical examination without abnormal findings (principal); R73.02 Impaired glucose tolerance (oral); I10 Essential (primary) hypertension; E78.00 Pure hypercholesterolemia, unspecified; I25.10 Atherosclerotic heart disease of native coronary artery without angina pectoris; N40.1 Benign prostatic hyperplasia with lower urinary tract symptoms; N13.8 Other obstructive and reflux uropathy; Z23 Encounter for immunization

== ENCOUNTER → 2025-09-16 09:40 | Outpatient (BNVA) | payer MEDICARE, SELFPAY | PROVIDERS: PCP Internal Medicine; Visit Provider Internal Medicine | DX: Z00.00 Encounter for general adult medical examination without abnormal findings (principal); I10 Essential (primary) hypertension; E78.00 Pure hypercholesterolemia, unspecified; I25.10 Atherosclerotic heart disease of native coronary artery without angina pectoris; N40.1 Benign prostatic hyperplasia with lower urinary tract symptoms; N13.8 Other obstructive and reflux uropathy; Z23 Encounter for immunization; E55.9 Vitamin D deficiency, unspecified; R73.03 Prediabetes | CPT/HCPCS: 90471; 90656; 99397 ==